=== PATIENT | female | born 1945 | race African-American/Black ===

== ENCOUNTER 2017-12-27 13:03 | Emergency (ER) | payer MEDICARE ==
--- NOTE | 2017-12-27 13:15 | ED ---
General Adult HPI - General Chief complaint: Shortness of Breath Stated complaint: CHAPIN Time Seen by Provider: 12/27/17 13:13 Source: patient, EMS, RN notes reviewed, old records reviewed Mode of arrival: EMS Limitations: no limitations - History of Present Illness Initial comments: This is a 72-year-old female the ER for evaluation. Positive cough or congestion. Patient states that she's had persistent cough and congestion since having an ALLERGIC reaction earlier in the week. She is having mild shortness of breath or no significant distress. She was placed on antibiotic by family doctor both patient states is wrong antibiotic that she does not have success with. She denies any chest pain no fevers no other complaints - Related Data Home Medications Medication Instructions Recorded Confirmed Triamterene-Hctz 37.5-25Mg 1 tab PO DAILY 06/02/15 06/08/15 [Maxzide 37.5-25] [place](Unknown Dose) 1 tab PO DIRECTED PRN 06/07/15 06/08/15 Loratadine [Claritin] 10 mg PO DAILY PRN 06/08/15 06/08/15 Previous Rx's Medication Instructions Recorded Acetaminophen-Codeine 300-30mg 1 each PO Q6H PRN #20 tablet 06/02/15 [Tylenol #3] Aspirin 325 mg PO DAILY #30 tab 06/09/15 Hydrocodone/Acetaminophen [[place] 1 each PO Q6HR PRN #60 tab 06/09/15 5-325] Albuterol Sulfate [Proair Hfa] 1 - 2 puff INHALATION Q4H PRN #1 12/27/17 inhaler Amoxicillin 500 mg PO Q8H #30 capsule 12/27/17 Allergies Allergy/AdvReac Type Severity Reaction Status Date / Time azithromycin [From Zithromax] Allergy BLOOD IN Verified 12/27/17 13:10 STOOL/URINE ciprofloxacin [From Cipro] Allergy BLOOD Verified 12/27/17 13:10 URINE/STOOL ciprofloxacin HCl Allergy BLOOD Verified 12/27/17 13:10 [From Cipro] URINE/STOOL CHLORINE Allergy Wheezing Uncoded 12/27/17 13:10 Review of Systems ROS Statement: Those systems with pertinent positive or pertinent negative responses have been documented in the HPI. ROS Other: All systems not noted in ROS Statement are negative. Past Medical History Past Medical History: Hypertension, Osteoarthritis (OA) Additional Past Medical History / Comment(s): CURRENT FX OF LEFT HUMERUS D/T FALL, SHOULDER IMMOBILIZED CURRENTLY History of Any Multi-Drug Resistant Organisms: None Reported Past Surgical History: Orthopedic Surgery Additional Past Surgical History / Comment(s): SX FX RT WRIST, LT IM HUMURUS NAILING Past Anesthesia/Blood Transfusion Reactions: No Reported Reaction Past Psychological History: No Psychological Hx Reported Smoking Status: Former smoker Past Alcohol Use History: None Reported Past Drug Use History: None Reported - Past Family History Father Family Medical History: Cancer, Dementia Additional Family Medical History / Comment(s): COLON Cncer, mrsa Mother Family Medical History: Asthma, Myocardial Infarction ([place]) Additional Family Medical History / Comment(s): age 33 General Exam Limitations: no limitations General appearance: alert, in no apparent distress Head exam: Present: atraumatic, normocephalic, normal inspection Eye exam: Present: normal appearance, PERRL, EOMI. Absent: scleral icterus, conjunctival injection, periorbital swelling ENT exam: Present: normal exam, mucous membranes moist Neck exam: Present: normal inspection. Absent: tenderness, meningismus, lymphadenopathy Respiratory exam: Present: normal lung sounds bilaterally. Absent: respiratory distress, wheezes, rales, rhonchi, stridor Cardiovascular Exam: Present: regular rate, normal rhythm, normal heart sounds. Absent: systolic murmur, diastolic murmur, rubs, gallop, clicks GI/Abdominal exam: Present: soft, normal bowel sounds. Absent: distended, tenderness, guarding, rebound, rigid Extremities exam: Present: normal inspection, full ROM, normal capillary refill. Absent: tenderness, pedal edema, joint swelling, calf tenderness Back exam: Present: normal inspection Neurological exam: Present: alert, oriented X3, CN II-XII intact Psychiatric exam: Present: normal affect, normal mood Skin exam: Present: warm, dry, intact, normal color. Absent: rash Course Vital Signs 12/27/17 12/27/17 12/27/17 13:10 13:30 14:09 Temperature 97.9 F Pulse Rate 88 84 Respiratory 19 19 Rate Blood Pressure 187/87 O2 Sat by Pulse 95 Oximetry 12/27/17 14:18 Temperature Pulse Rate 86 Respiratory Rate Blood Pressure O2 Sat by Pulse Oximetry - Reevaluation(s) Reevaluation #1: 06/30/18 14:18 Patient remains without significant complaint or distress. Medical Decision Making - Medical Decision Making 72 female to ER for evaluation of cough and congestion, patient live antibiotic changed. She is without distress here in the ER and can be discharged home - Radiology Data Radiology results: report reviewed (Chest x-rays negative), image reviewed Disposition Clinical Impression: Acute bronchitis, Community acquired bacterial pneumonia Disposition: HOME SELF-CARE Condition: Good Instructions: Acute Bronchitis (ED), Bronchospasm (ED), Community Acquired Pneumonia (ED) Prescriptions: Albuterol Sulfate [Proair Hfa] 1 - 2 puff INHALATION Q4H PRN #1 inhaler PRN Reason: Shortness Of Breath Amoxicillin 500 mg PO Q8H #30 capsule Is patient prescribed a controlled substance at d/c from ED?: No Referrals: Nonstaff,Physician [Primary Care Provider] - 1-2 days
[2017-12-27] MEDS ORDERED: IPRATROPIUM-ALBUTEROL 3 ML NEB INHALATION STA (13:55)
[2017-12-27] MEDS ORDERED: SODIUM CHLORIDE 0.9% 1,000 ML IV STA (13:55)
[2017-12-27] MEDS ORDERED: AMOXICILLIN 500 MG CAP PO STA (13:59)
[2017-12-27] MEDS ORDERED: DEXAMETHASONE SOD PHOSPHATE 10 MG/ML 1 ML VIAL IM STA (13:59)
--- NOTE | 2017-12-27 14:47 | XR ---
EXAMINATION TYPE: XR chest 2V DATE OF EXAM: 12/27/2017 COMPARISON: Prior chest x-ray 06/02/2015 HISTORY: Difficulty breathing, cough TECHNIQUE: Frontal and lateral views of the chest are obtained. FINDINGS: There is increased density at the right lung base suggesting right heart border and hemidi aphragm. No evident pneumothorax. Heart is thought to be enlarged. Postop change noted to the left hu merus. Aorta is tortuous, patient is rotated. Right shoulder is high riding which may be due to chron ic rotator cuff tear. IMPRESSION: Correlate for right lower lobe pneumonia and associated effusion versus atelectasis, fol low-up to resolution to exclude an underlying mass. There may be cardiomegaly.
[2017-12-27 14:53] VITALS: BP 180/81; PULSE 89; RESP 20; TEMP 96.9
== END 2017-12-27 15:12 | disposition home or self-care (01) ==
LOC: EC 13:03
DX: J15.9 Unspecified bacterial pneumonia (principal); J20.9 Acute bronchitis, unspecified; I10 Essential (primary) hypertension; Z87.891 Personal history of nicotine dependence; Z79.899 Other long term (current) drug therapy; Z88.1 Allergy status to other antibiotic agents; Z91.048 Other nonmedicinal substance allergy status; Z82.5 Family history of asthma and other chronic lower respiratory diseases; Z53.8 Procedure and treatment not carried out for other reasons
CPT/HCPCS: 94640; 71046; 99285; 96372; J1100

== ENCOUNTER 2017-12-30 19:23 | Emergency (ER) | payer MEDICARE ==
[2017-12-30 19:34] VITALS: TEMP 98.3
[2017-12-30] MEDS ORDERED: IPRATROPIUM-ALBUTEROL 3 ML NEB INHALATION STA (19:51)
[2017-12-30] MEDS ORDERED: methylPREDNISolone SOD SUCCI 125 MG/2 ML VIAL IV STA (19:52)
[2017-12-30 20:12] LABS: Basophils # (A) 0.1 k/uL (0-0.2); Basophils % (A) 1 %; Eosinophils # (A) 0.2 k/uL (0-0.7); Eosinophils % (A) 3 %; HGB 15.3 gm/dL (11.4-16.0); Lymphocytes # (A) 2.8 k/uL (1.0-4.8); Lymphocytes % (A) 45 %; MCH 29.7 pg (25.0-35.0); MCV 87.4 fL (80.0-100.0); Mean Platelet Volume 6.8; Monocytes # (A) 0.5 k/uL (0-1.0); Monocytes % (A) 8 %; Neutrophils # (A) 2.5 k/uL (1.3-7.7); Neutrophils % (A) 40 %; Platelet Count 422 k/uL (150-450); RBC 5.15 m/uL (3.80-5.40); RDW 13.2 % (11.5-15.5); WBC 6.3 k/uL (3.8-10.6)
--- NOTE | 2017-12-30 20:13 | ED ---
SOB HPI - General Chief Complaint: Shortness of Breath Stated Complaint: SOB-revisit Time Seen by Provider: 12/30/17 19:36 Source: patient Mode of arrival: wheelchair Limitations: no limitations - History of Present Illness Initial Comments: This is a 72-year-old female who presents emergency department for shortness of breath. The patient was seen here a few days ago and diagnosed with pneumonia. She was placed on amoxicillin and given a prescription for albuterol however the she was unable to get that filled because of the cost. She states that she' s had persistent symptoms and feels that she's getting worse. She states that she has a lot of coughing. She states that she feels like her throat is swollen and that is why she is having a cough. She denies any pain associated with this. No fevers or chills. No weakness or fatigue. She denies any other acute complaints. Of note the patient believes that she has a chloride ALLERGY to the water and that this causes her to have bronchitis. - Related Data Home Medications Medication Instructions Recorded Confirmed Triamterene-Hctz 37.5-25Mg 1 tab PO DAILY 06/02/15 12/30/17 [Maxzide 37.5-25] guaiFENesin [Mucinex] 600 mg PO Q12H PRN 12/30/17 12/30/17 Previous Rx's Medication Instructions Recorded Amoxicillin 500 mg PO Q8H #30 capsule 12/27/17 predniSONE 50 mg PO DAILY #4 tab 12/30/17 Allergies Allergy/AdvReac Type Severity Reaction Status Date / Time azithromycin [From Zithromax] Allergy BLOOD IN Verified 12/30/17 20:05 STOOL/URINE ciprofloxacin [From Cipro] Allergy BLOOD Verified 12/30/17 20:05 URINE/STOOL ciprofloxacin HCl Allergy BLOOD Verified 12/30/17 20:05 [From Cipro] URINE/STOOL CHLORINE Allergy Wheezing Uncoded 12/30/17 19:35 Review of Systems ROS Statement: Those systems with pertinent positive or pertinent negative responses have been documented in the HPI. ROS Other: All systems not noted in ROS Statement are negative. Past Medical History Past Medical History: Hypertension, Osteoarthritis (OA), Pneumonia Additional Past Medical History / Comment(s): CURRENT FX OF LEFT HUMERUS D/T FALL, SHOULDER IMMOBILIZED CURRENTLY History of Any Multi-Drug Resistant Organisms: None Reported Past Surgical History: Orthopedic Surgery Additional Past Surgical History / Comment(s): SX FX RT WRIST, LT IM HUMURUS NAILING Past Anesthesia/Blood Transfusion Reactions: No Reported Reaction Past Psychological History: No Psychological Hx Reported Smoking Status: Former smoker Past Alcohol Use History: Occasional Past Drug Use History: None Reported - Past Family History Father Family Medical History: Cancer, Dementia Additional Family Medical History / Comment(s): COLON Cncer, mrsa Mother Family Medical History: Asthma, Myocardial Infarction ([place]) Additional Family Medical History / Comment(s): age 33 General Exam - General Exam Comments Initial Comments: Constitutional: Awake alert Appears comfortable Head: Normocephalic atraumatic Eyes: no conjunctival injection No scleral icterus EOMI Neck: No JVD Supple, no swelling noted, no stridor Heart: Regular rate rhythm normal S1-S2 no murmurs Lungs: Clear to auscultation bilaterally No wheezing No rales Abdomen: Soft nondistended nontender Extremities: Non edematous DP pulses intact Radial pulses intact Neuro: A&Ox3 No focal neurologic deficits Psych: Appropriate mood and affect Limitations: no limitations Course Vital Signs 12/30/17 12/30/17 12/30/17 19:29 20:02 20:12 Temperature 98.3 F Pulse Rate 94 75 73 Respiratory 18 18 16 Rate Blood Pressure 164/82 171/76 O2 Sat by Pulse 96 95 Oximetry 12/30/17 12/30/17 20:22 21:52 Temperature Pulse Rate 80 82 Respiratory 16 18 Rate Blood Pressure 157/84 O2 Sat by Pulse 95 Oximetry - Reevaluation(s) Reevaluation #1: 12/30/17 20:13 EKG showing normal sinus rhythm with a rate of 86. There is no abnormal ST segment changes. There is T-wave flattening in 3 and aVF. QTC is 456. Other intervals normal. No ectopy. Medical Decision Making - Medical Decision Making This is a 72-year-old female who presents emergency department for persistent cough and shortness of breath. Patient had much improvement after DuoNeb. She had no further coughing or shortness of breath. Oxygen saturation saturations were normal. Blood work was reviewed and unremarkable. Chest x-ray showed a persistent what appears to be pleural effusion on the right. The patient is being treated with amoxicillin 500 mg 3 times a day and has 5 days left. I told her to continue with this. I'm going to give her some steroids to help with some of the inflammation as well. Patient was given a prescription for albuterol and she was urged to please pick this up so that she could treat her symptoms. With regard to the pleural effusion I told the patient that she needs to have close follow-up with her primary doctor to have this further worked up. There is no lower extremity edema. No evidence for heart failure otherwise. Told the patient if she had worsening cough or shortness of breath she can return emergency department however the patient stated that she would prefer not to stay in the hospital now. - Lab Data Result diagrams: 12/30/17 19:58 12/30/17 19:58 Lab Results 12/30/17 12/30/17 Range/Units 19:58 19:58 WBC 6.3 (3.8-10.6) k/uL RBC 5.15 (3.80-5.40) m/uL Hgb 15.3 (11.4-16.0) gm/dL Hct 45.0 (34.0-46.0) % MCV 87.4 (80.0-100.0) fL MCH 29.7 (25.0-35.0) pg MCHC 34.0 (31.0-37.0) g/dL RDW 13.2 (11.5-15.5) % Plt Count 422 (150-450) k/uL Neutrophils % 40 % Lymphocytes % 45 % Monocytes % 8 % Eosinophils % 3 % Basophils % 1 % Neutrophils # 2.5 (1.3-7.7) k/uL Lymphocytes # 2.8 (1.0-4.8) k/uL Monocytes # 0.5 (0-1.0) k/uL Eosinophils # 0.2 (0-0.7) k/uL Basophils # 0.1 (0-0.2) k/uL Sodium 142 (137-145) mmol/L Potassium 3.7 (3.5-5.1) mmol/L Chloride 104 (98-107) mmol/L Carbon Dioxide 23 (22-30) mmol/L Anion Gap 15 mmol/L BUN 19 H (7-17) mg/dL Creatinine 0.90 (0.52-1.04) mg/dL Est GFR (CKD-EPI)AfAm 74 (>60 ml/min/1.73 sqM) Est GFR (CKD-EPI)NonAf 64 (>60 ml/min/1.73 sqM) Glucose 93 (74-99) mg/dL Calcium 10.4 H (8.4-10.2) mg/dL Total Bilirubin 0.4 (0.2-1.3) mg/dL AST 32 (14-36) U/L ALT 39 (9-52) U/L Alkaline Phosphatase 104 (38-126) U/L Total Protein 7.8 (6.3-8.2) g/dL Albumin 4.6 (3.5-5.0) g/dL Disposition Clinical Impression: Bronchopneumonia Disposition: HOME SELF-CARE Condition: Stable Instructions: Acute Bronchitis (ED) Prescriptions: predniSONE 50 mg PO DAILY #4 tab Is patient prescribed a controlled substance at d/c from ED?: No Referrals: Nonstaff,Physician [Primary Care Provider] - 1-2 days
[2017-12-30 20:21] LABS: Albumin 4.6 g/dL (3.5-5.0); Calcium 10.4 mg/dL (8.4-10.2); Potassium 3.7 mmol/L (3.5-5.1); Total Bilirubin 0.4 mg/dL (0.2-1.3); Total Protein 7.8 g/dL (6.3-8.2)
--- NOTE | 2017-12-30 21:30 | XR ---
EXAMINATION TYPE: XR chest 2V DATE OF EXAM: 12/30/2017 COMPARISON: 12/27/2017 HISTORY: Cough TECHNIQUE: Frontal and lateral views of the chest are obtained. FINDINGS: There is opacification of the right lower hemithorax.. There is no heart failure. There is probably significant atelectasis at the right lung base. There is right pleural effusion with fluid in the major fissure. The left lung is clear. There are chest leads. IMPRESSION: Chronic right pleural effusion and right lower lobe consolidation that is the same or sl ightly worse than last exam.
--- NOTE | 2017-12-30 21:30 | XR ---
EXAMINATION TYPE: XR soft tissue neck DATE OF EXAM: 12/30/2017 COMPARISON: NONE HISTORY: Cough TECHNIQUE: 3 views FINDINGS: Epiglottis is normal. Subglottic trachea appears normal. Tonsils and adenoids have normal s ize. Prevertebral soft tissues appear normal. IMPRESSION: Negative cervical soft tissue exam.
[2017-12-30 21:55] VITALS: BP 157/84; PULSE 82; RESP 18
== END 2017-12-30 21:58 | disposition home or self-care (01) ==
LOC: EC 19:23
DX: J18.0 Bronchopneumonia, unspecified organism (principal); J90 Pleural effusion, not elsewhere classified; I10 Essential (primary) hypertension; Z87.891 Personal history of nicotine dependence; Z79.899 Other long term (current) drug therapy; Z88.1 Allergy status to other antibiotic agents; Z88.8 Allergy status to other drugs, medicaments and biological substances
CPT/HCPCS: 36415; 94640; 93005; 80053; 85025; 70360; 71046; 99285; 96374; J2930

== ENCOUNTER 2018-01-23 15:59 | Emergency (ER) | payer MEDICARE ==
[2018-01-23] MEDS ORDERED: IPRATROPIUM-ALBUTEROL 3 ML NEB INHALATION STA (17:05)
[2018-01-23 17:26] LABS: Basophils % (A) 1 %; Eosinophils # (A) 0.1 k/uL (0-0.7); Eosinophils % (A) 2 %; HCT 46.1 % (34.0-46.0); HGB 14.9 gm/dL (11.4-16.0); Lymphocytes # (A) 2.9 k/uL (1.0-4.8); Lymphocytes % (A) 45 %; MCH 28.4 pg (25.0-35.0); MCHC 32.4 g/dL (31.0-37.0); MCV 87.5 fL (80.0-100.0); Mean Platelet Volume 6.9; Monocytes # (A) 0.5 k/uL (0-1.0); Monocytes % (A) 8 %; Neutrophils # (A) 2.6 k/uL (1.3-7.7); Neutrophils % (A) 42 %; Platelet Count 453 k/uL (150-450); RBC 5.27 m/uL (3.80-5.40); RDW 12.6 % (11.5-15.5); WBC 6.4 k/uL (3.8-10.6)
[2018-01-23 17:31] LABS: ALT 33 U/L (9-52); AST 32 U/L (14-36); Albumin 4.6 g/dL (3.5-5.0); Alkaline Phosphatase 92 U/L (38-126); Anion Gap 10 mmol/L; Blood Urea Nitrogen 19 mg/dL (7-17); Calcium 10.7 mg/dL (8.4-10.2); Carbon Dioxide 26 mmol/L (22-30); Chloride 103 mmol/L (98-107); Glucose 84 mg/dL (74-99); Magnesium 2.2 mg/dL (1.6-2.3); Potassium 4.1 mmol/L (3.5-5.1); Prothrombin Time 10.2 sec (9.0-12.0); Sodium 139 mmol/L (137-145); Total Bilirubin 0.4 mg/dL (0.2-1.3)
[2018-01-23 17:44] LABS: Creatine Kinase 57 U/L (30-135)
[2018-01-23 17:57] LABS: Creatine Kinase MB 0.6 ng/mL (0.0-2.4); Troponin I <0.012 ng/mL (0.000-0.034)
[2018-01-23 18:02] LABS: Partial Thromboplastin Time 21.1 sec (22.0-30.0)
--- NOTE | 2018-01-23 18:03 | ED ---
General Adult HPI - General Chief complaint: Shortness of Breath Stated complaint: Diff Breathing Time Seen by Provider: 01/23/18 16:30 Source: patient, RN notes reviewed, old records reviewed Mode of arrival: wheelchair Limitations: no limitations - History of Present Illness Initial comments: This is a 73-year-old female the ER for evaluation. Patient well-known to this ER for evaluation regarding difficulty breathing. Multiple similar visits. He denies any pain or difficulty breathing currently. She states she's had a chronic cough for about a month and is something that she's had multiple times in her life. Patient denies a chest pain, no recent fevers. No travel history or known sick contacts - Related Data Home Medications Medication Instructions Recorded Confirmed Triamterene-Hctz 37.5-25Mg 1 tab PO DAILY 06/02/15 01/23/18 [Maxzide 37.5-25] guaiFENesin [Mucinex] 600 mg PO Q12H PRN 12/30/17 01/23/18 Biotin 5 mg PO DAILY 01/23/18 01/23/18 Cyanocobalamin (Vitamin B-12) 1,000 mcg PO DAILY 01/23/18 01/23/18 [Vitamin B-12] Methylsulfonylmethane [MSM] 1,000 mg PO DAILY 01/23/18 01/23/18 Multivitamins, Thera [Multivitamin 1 tab PO DAILY 01/23/18 01/23/18 (formulary)] Vitamin B Complex 1 cap PO DAILY 01/23/18 01/23/18 Vitamin E (Dl,Tocopheryl Acet) 400 unit PO DAILY 01/23/18 01/23/18 [Vitamin E] Previous Rx's Medication Instructions Recorded predniSONE 50 mg PO DAILY #5 tab 01/23/18 Allergies Allergy/AdvReac Type Severity Reaction Status Date / Time azithromycin [From Zithromax] Allergy BLOOD IN Verified 01/23/18 16:50 STOOL/URINE ciprofloxacin [From Cipro] Allergy BLOOD Verified 01/23/18 16:50 URINE/STOOL ciprofloxacin HCl Allergy BLOOD Verified 01/23/18 16:50 [From Cipro] URINE/STOOL CHLORINE Allergy Wheezing Uncoded 01/23/18 16:33 Review of Systems ROS Statement: Those systems with pertinent positive or pertinent negative responses have been documented in the HPI. ROS Other: All systems not noted in ROS Statement are negative. Past Medical History Past Medical History: Hypertension, Osteoarthritis (OA), Pneumonia Additional Past Medical History / Comment(s): CURRENT FX OF LEFT HUMERUS D/T FALL, SHOULDER IMMOBILIZED CURRENTLY History of Any Multi-Drug Resistant Organisms: None Reported Past Surgical History: Orthopedic Surgery Additional Past Surgical History / Comment(s): SX FX RT WRIST, LT IM HUMURUS NAILING Past Anesthesia/Blood Transfusion Reactions: No Reported Reaction Past Psychological History: No Psychological Hx Reported Smoking Status: Former smoker Past Alcohol Use History: Occasional Past Drug Use History: None Reported - Past Family History Father Family Medical History: Cancer, Dementia Additional Family Medical History / Comment(s): COLON Cncer, mrsa Mother Family Medical History: Asthma, Myocardial Infarction ([place]) Additional Family Medical History / Comment(s): age 33 General Exam Limitations: no limitations General appearance: alert, in no apparent distress Head exam: Present: atraumatic, normocephalic, normal inspection Eye exam: Present: normal appearance, PERRL, EOMI. Absent: scleral icterus, conjunctival injection, periorbital swelling ENT exam: Present: normal exam, mucous membranes moist Neck exam: Present: normal inspection. Absent: tenderness, meningismus, lymphadenopathy Respiratory exam: Present: normal lung sounds bilaterally. Absent: respiratory distress, wheezes, rales, rhonchi, stridor Cardiovascular Exam: Present: regular rate, normal rhythm, normal heart sounds. Absent: systolic murmur, diastolic murmur, rubs, gallop, clicks GI/Abdominal exam: Present: soft, normal bowel sounds. Absent: distended, tenderness, guarding, rebound, rigid Extremities exam: Present: normal inspection, full ROM, normal capillary refill. Absent: tenderness, pedal edema, joint swelling, calf tenderness Back exam: Present: normal inspection Neurological exam: Present: alert, oriented X3, CN II-XII intact Psychiatric exam: Present: normal affect, normal mood Skin exam: Present: warm, dry, intact, normal color. Absent: rash Course Vital Signs 01/23/18 01/23/18 01/23/18 16:30 17:10 17:24 Temperature 98.3 F Pulse Rate 83 92 69 Respiratory 20 Rate Blood Pressure 141/80 O2 Sat by Pulse 98 Oximetry 01/23/18 19:21 Temperature 97.8 F Pulse Rate 70 Respiratory 18 Rate Blood Pressure 156/73 O2 Sat by Pulse 98 Oximetry - Reevaluation(s) Reevaluation #1: Corrected is reviewed including prior ER visits twice for similar complaint EKG Findings - EKG Comments: EKG Findings:: EKG shows normal sinus rhythm rate of 70, [place] 136, QRS 76, QTc 423 Medical Decision Making - Medical Decision Making 73 female coming in with chronic cough. Patient will be treated appropriately and discharged home - Lab Data Result diagrams: 01/23/18 16:52 01/23/18 16:52 Lab Results 01/23/18 01/23/18 01/23/18 Range/Units 16:52 16:52 16:52 WBC 6.4 (3.8-10.6) k/uL RBC 5.27 (3.80-5.40) m/uL Hgb 14.9 (11.4-16.0) gm/dL Hct 46.1 H (34.0-46.0) % MCV 87.5 (80.0-100.0) fL MCH 28.4 (25.0-35.0) pg MCHC 32.4 (31.0-37.0) g/dL RDW 12.6 (11.5-15.5) % Plt Count 453 H (150-450) k/uL Neutrophils % 42 % Lymphocytes % 45 % Monocytes % 8 % Eosinophils % 2 % Basophils % 1 % Neutrophils # 2.6 (1.3-7.7) k/uL Lymphocytes # 2.9 (1.0-4.8) k/uL Monocytes # 0.5 (0-1.0) k/uL Eosinophils # 0.1 (0-0.7) k/uL Basophils # 0.0 (0-0.2) k/uL PT (9.0-12.0) sec INR (<1.2) APTT (22.0-30.0) sec Sodium 139 (137-145) mmol/L Potassium 4.1 (3.5-5.1) mmol/L Chloride 103 (98-107) mmol/L Carbon Dioxide 26 (22-30) mmol/L Anion Gap 10 mmol/L BUN 19 H (7-17) mg/dL Creatinine 0.70 (0.52-1.04) mg/dL Est GFR (CKD-EPI)AfAm >90 (>60 ml/min/1.73 sqM) Est GFR (CKD-EPI)NonAf 86 (>60 ml/min/1.73 sqM) Glucose 84 (74-99) mg/dL Calcium 10.7 H (8.4-10.2) mg/dL Magnesium 2.2 (1.6-2.3) mg/dL Total Bilirubin 0.4 (0.2-1.3) mg/dL AST 32 (14-36) U/L ALT 33 (9-52) U/L Alkaline Phosphatase 92 (38-126) U/L Total Creatine Kinase 57 (30-135) U/L CK-MB (CK-2) 0.6 (0.0-2.4) ng/mL CK-MB (CK-2) Rel Index 1.1 Troponin I <0.012 (0.000-0.034) ng/mL NT-Pro-B Natriuret Pep pg/mL Total Protein 8.0 (6.3-8.2) g/dL Albumin 4.6 (3.5-5.0) g/dL 01/23/18 01/23/18 Range/Units 16:52 16:52 WBC (3.8-10.6) k/uL RBC (3.80-5.40) m/uL Hgb (11.4-16.0) gm/dL Hct (34.0-46.0) % MCV (80.0-100.0) fL MCH (25.0-35.0) pg MCHC (31.0-37.0) g/dL RDW (11.5-15.5) % Plt Count (150-450) k/uL Neutrophils % % Lymphocytes % % Monocytes % % Eosinophils % % Basophils % % Neutrophils # (1.3-7.7) k/uL Lymphocytes # (1.0-4.8) k/uL Monocytes # (0-1.0) k/uL Eosinophils # (0-0.7) k/uL Basophils # (0-0.2) k/uL PT 10.2 (9.0-12.0) sec INR 1.0 (<1.2) APTT 21.1 L (22.0-30.0) sec Sodium (137-145) mmol/L Potassium (3.5-5.1) mmol/L Chloride (98-107) mmol/L Carbon Dioxide (22-30) mmol/L Anion Gap mmol/L BUN (7-17) mg/dL Creatinine (0.52-1.04) mg/dL Est GFR (CKD-EPI)AfAm (>60 ml/min/1.73 sqM) Est GFR (CKD-EPI)NonAf (>60 ml/min/1.73 sqM) Glucose (74-99) mg/dL Calcium (8.4-10.2) mg/dL Magnesium (1.6-2.3) mg/dL Total Bilirubin (0.2-1.3) mg/dL AST (14-36) U/L ALT (9-52) U/L Alkaline Phosphatase (38-126) U/L Total Creatine Kinase (30-135) U/L CK-MB (CK-2) (0.0-2.4) ng/mL CK-MB (CK-2) Rel Index Troponin I (0.000-0.034) ng/mL NT-Pro-B Natriuret Pep 37 pg/mL Total Protein (6.3-8.2) g/dL Albumin (3.5-5.0) g/dL - Radiology Data Radiology results: report reviewed (Chest x-rays negative for acute disease), image reviewed Disposition Clinical Impression: Bronchopneumonia, URI (upper respiratory infection) Disposition: HOME SELF-CARE Condition: Good Instructions: Upper Respiratory Infection (ED) Prescriptions: predniSONE 50 mg PO DAILY #5 tab Is patient prescribed a controlled substance at d/c from ED?: No Referrals: Nahed Ledezma MD [Primary Care Provider] - 1-2 days
--- NOTE | 2018-01-23 18:44 | XR ---
EXAMINATION TYPE: XR chest 2V DATE OF EXAM: 01/23/2018 COMPARISON: 12/30/2017 HISTORY: Short of breath TECHNIQUE: Frontal and lateral views of the chest are obtained. FINDINGS: There is opacification of the right lower hemithorax consistent with large pleural effusio n. There is no gross heart failure. Thoracic aorta is atheromatous. There are chest leads. IMPRESSION: Pleural fluid and consolidation in the right lower lobe. No gross heart failure. This ap pears the same or slightly worse than last exam.
[2018-01-23] MEDS ORDERED: DEXAMETHASONE SOD PHOSPHATE 10 MG/ML 1 ML VIAL IV STA (18:48)
[2018-01-23 19:25] VITALS: BP 156/73; RESP 18; TEMP 97.8
[2018-01-23 19:30] VITALS: PULSE 70
== END 2018-01-23 19:30 | disposition home or self-care (01) ==
LOC: EC 15:59
DX: J18.0 Bronchopneumonia, unspecified organism (principal); J06.9 Acute upper respiratory infection, unspecified; I10 Essential (primary) hypertension; Z87.891 Personal history of nicotine dependence; Z79.899 Other long term (current) drug therapy; Z88.1 Allergy status to other antibiotic agents; Z91.048 Other nonmedicinal substance allergy status
CPT/HCPCS: 36415; 94640; 83880; 80053; 82550; 82553; 83735; 84484; 85025; 85610; 85730; 71046; 99285; 96374; J1100

== ENCOUNTER 2018-02-03 11:44 | Emergency (ER) | payer MEDICARE ==
[2018-02-03] MEDS ORDERED: IPRATROPIUM-ALBUTEROL 3 ML NEB INHALATION STA (12:18)
--- NOTE | 2018-02-03 12:21 | ED ---
SOB HPI - General Chief Complaint: Shortness of Breath Stated Complaint: Sob Time Seen by Provider: 02/03/18 12:00 Source: patient, RN notes reviewed Mode of arrival: ambulatory Limitations: no limitations - History of Present Illness Initial Comments: This is a 73-year-old female history of hypertension states she has had progressively worsening shortness of breath for week. She states that she was in [facility] over week ago and is sure that she would have normal breathing after several days of vaccination. She did not get better in fact got worse she was seen at a hospital there and found have a right pleural effusion. He stated she wanted him also she came home last night by airplane is here today with complaints of shortness of breath and the pleural effusion history she has no prior history of effusion no known lung disease she states she did smoke when she was in college many years ago but nothing since. No trauma is reported no fevers chills sweats over chest pain or other symptoms. MD Complaint: shortness of breath - Related Data Home Medications Medication Instructions Recorded Confirmed Triamterene-Hctz 37.5-25Mg 1 tab PO DAILY 06/02/15 02/03/18 [Maxzide 37.5-25] guaiFENesin [Mucinex] 600 mg PO Q12H PRN 12/30/17 02/03/18 Biotin 5 mg PO DAILY 01/23/18 02/03/18 Cyanocobalamin (Vitamin B-12) 1,000 mcg PO DAILY 01/23/18 02/03/18 [Vitamin B-12] Methylsulfonylmethane [MSM] 1,000 mg PO DAILY 01/23/18 02/03/18 Multivitamins, Thera [Multivitamin 1 tab PO DAILY 01/23/18 02/03/18 (formulary)] Vitamin B Complex 1 cap PO DAILY 01/23/18 02/03/18 Vitamin E (Dl,Tocopheryl Acet) 400 unit PO DAILY 01/23/18 02/03/18 [Vitamin E] Acetaminophen Tab [Tylenol Tab] 325 mg PO Q4H PRN 02/03/18 02/03/18 Cholecalciferol [Vitamin D3] 1,000 unit PO DAILY 02/03/18 02/03/18 Allergies Allergy/AdvReac Type Severity Reaction Status Date / Time azithromycin [From Zithromax] Allergy BLOOD IN Verified 02/03/18 12:31 STOOL/URINE ciprofloxacin [From Cipro] Allergy BLOOD Verified 02/03/18 12:31 URINE/STOOL ciprofloxacin HCl Allergy BLOOD Verified 02/03/18 12:31 [From Cipro] URINE/STOOL CHLORINE Allergy Wheezing Uncoded 02/03/18 11:59 Review of Systems ROS Statement: Those systems with pertinent positive or pertinent negative responses have been documented in the HPI. ROS Other: All systems not noted in ROS Statement are negative. Past Medical History Past Medical History: Hypertension, Osteoarthritis (OA), Pneumonia Additional Past Medical History / Comment(s): CURRENT FX OF LEFT HUMERUS D/T FALL, SHOULDER IMMOBILIZED CURRENTLY History of Any Multi-Drug Resistant Organisms: None Reported Past Surgical History: Orthopedic Surgery Additional Past Surgical History / Comment(s): SX FX RT WRIST, LT IM HUMURUS NAILING Past Anesthesia/Blood Transfusion Reactions: No Reported Reaction Past Psychological History: No Psychological Hx Reported Smoking Status: Former smoker Past Alcohol Use History: Occasional Past Drug Use History: None Reported - Past Family History Father Family Medical History: Cancer, Dementia Additional Family Medical History / Comment(s): COLON Cncer, mrsa Mother Family Medical History: Asthma, Myocardial Infarction ([place]) Additional Family Medical History / Comment(s): age 33 General Exam - General Exam Comments Initial Comments: This is a well-developed well-nourished awake alert oriented 3 female Limitations: no limitations General appearance: alert, in no apparent distress Head exam: Present: atraumatic, normocephalic, normal inspection Eye exam: Present: normal appearance, PERRL, EOMI. Absent: scleral icterus, conjunctival injection, periorbital swelling ENT exam: Present: normal exam, mucous membranes moist Neck exam: Present: normal inspection. Absent: tenderness, meningismus, lymphadenopathy Respiratory exam: Present: decreased breath sounds, other (Decreased breath sounds on the right with dullness compared to the left side.). Absent: respiratory distress, wheezes, rales, rhonchi, stridor Cardiovascular Exam: Present: regular rate, normal rhythm, normal heart sounds. Absent: systolic murmur, diastolic murmur, rubs, gallop, clicks GI/Abdominal exam: Present: soft, normal bowel sounds. Absent: distended, tenderness, guarding, rebound, rigid Extremities exam: Present: normal inspection, full ROM, normal capillary refill. Absent: tenderness, pedal edema, joint swelling, calf tenderness Back exam: Present: normal inspection Neurological exam: Present: alert, oriented X3, CN II-XII intact Psychiatric exam: Present: normal affect, normal mood Skin exam: Present: warm, dry, intact, normal color. Absent: rash Course Vital Signs 02/03/18 02/03/18 02/03/18 11:59 12:48 12:50 Temperature 98.1 F Pulse Rate 90 83 Respiratory 18 18 18 Rate Blood Pressure 166/95 169/96 O2 Sat by Pulse 97 96 Oximetry 02/03/18 02/03/18 02/03/18 13:00 13:12 13:51 Temperature Pulse Rate 82 80 87 Respiratory 18 Rate Blood Pressure 169/84 O2 Sat by Pulse 97 Oximetry 02/03/18 02/03/18 14:30 15:44 Temperature 97.4 F L Pulse Rate 96 95 Respiratory 19 18 Rate Blood Pressure 168/82 173/84 O2 Sat by Pulse 95 95 Oximetry - Reevaluation(s) Reevaluation #1: 02/03/18 15:55 Patient does demonstrate evidence of a pleural effusion on the right. Dr. Liang was originally consulted and did perform a ultrasound guided thoracentesis in the emergency department and did obtain over 700 mL of fluid. After reevaluation it was determined that she could be discharged he will follow -up with Dr. Liang outpatient. She is to call tomorrow for an appointment Medical Decision Making - Medical Decision Making I did discuss the findings with Dr. Liang patient will be discharged with outpatient follow-up I did discuss the findings with the patient she'll be discharged pain medication will be [id number] Tylenol and/or Motrin she has had trouble with Aleve in the past but not ibuprofen. The current findings are consistent with a parapneumonic effusion - Lab Data Result diagrams: 02/03/18 12:33 02/03/18 12:33 Lab Results 02/03/18 02/03/18 02/03/18 Range/Units 12:33 12:33 12:33 WBC 6.6 (3.8-10.6) k/uL RBC 5.18 (3.80-5.40) m/uL Hgb 15.1 (11.4-16.0) gm/dL Hct 45.1 (34.0-46.0) % MCV 87.1 (80.0-100.0) fL MCH 29.1 (25.0-35.0) pg MCHC 33.4 (31.0-37.0) g/dL RDW 13.0 (11.5-15.5) % Plt Count 313 (150-450) k/uL Neutrophils % 58 % Lymphocytes % 30 % Monocytes % 8 % Eosinophils % 2 % Basophils % 0 % Neutrophils # 3.8 (1.3-7.7) k/uL Lymphocytes # 1.9 (1.0-4.8) k/uL Monocytes # 0.5 (0-1.0) k/uL Eosinophils # 0.1 (0-0.7) k/uL Basophils # 0.0 (0-0.2) k/uL PT (9.0-12.0) sec INR (<1.2) APTT (22.0-30.0) sec Sodium 140 (137-145) mmol/L Potassium 3.7 (3.5-5.1) mmol/L Chloride 105 (98-107) mmol/L Carbon Dioxide 25 (22-30) mmol/L Anion Gap 10 mmol/L BUN 12 (7-17) mg/dL Creatinine 0.70 (0.52-1.04) mg/dL Est GFR (CKD-EPI)AfAm >90 (>60 ml/min/1.73 sqM) Est GFR (CKD-EPI)NonAf 86 (>60 ml/min/1.73 sqM) Glucose 103 H (74-99) mg/dL Plasma Lactic Acid Gonzales (0.7-2.0) mmol/L Calcium 10.0 (8.4-10.2) mg/dL Magnesium 2.2 (1.6-2.3) mg/dL Total Bilirubin 1.0 (0.2-1.3) mg/dL AST 38 H (14-36) U/L ALT 46 (9-52) U/L Alkaline Phosphatase 97 (38-126) U/L Total Creatine Kinase 75 (30-135) U/L CK-MB (CK-2) 1.2 (0.0-2.4) ng/mL CK-MB (CK-2) Rel Index 1.6 Troponin I <0.012 (0.000-0.034) ng/mL NT-Pro-B Natriuret Pep pg/mL Total Protein 7.5 (6.3-8.2) g/dL Albumin 4.3 (3.5-5.0) g/dL 02/03/18 02/03/18 02/03/18 Range/Units 12:33 12:33 12:33 WBC (3.8-10.6) k/uL RBC (3.80-5.40) m/uL Hgb (11.4-16.0) gm/dL Hct (34.0-46.0) % MCV (80.0-100.0) fL MCH (25.0-35.0) pg MCHC (31.0-37.0) g/dL RDW (11.5-15.5) % Plt Count (150-450) k/uL Neutrophils % % Lymphocytes % % Monocytes % % Eosinophils % % Basophils % % Neutrophils # (1.3-7.7) k/uL Lymphocytes # (1.0-4.8) k/uL Monocytes # (0-1.0) k/uL Eosinophils # (0-0.7) k/uL Basophils # (0-0.2) k/uL PT 10.2 (9.0-12.0) sec INR 1.0 (<1.2) APTT 20.9 L (22.0-30.0) sec Sodium (137-145) mmol/L Potassium (3.5-5.1) mmol/L Chloride (98-107) mmol/L Carbon Dioxide (22-30) mmol/L Anion Gap mmol/L BUN (7-17) mg/dL Creatinine (0.52-1.04) mg/dL Est GFR (CKD-EPI)AfAm (>60 ml/min/1.73 sqM) Est GFR (CKD-EPI)NonAf (>60 ml/min/1.73 sqM) Glucose (74-99) mg/dL Plasma Lactic Acid Gonzales 1.2 (0.7-2.0) mmol/L Calcium (8.4-10.2) mg/dL Magnesium (1.6-2.3) mg/dL Total Bilirubin (0.2-1.3) mg/dL AST (14-36) U/L ALT (9-52) U/L Alkaline Phosphatase (38-126) U/L Total Creatine Kinase (30-135) U/L CK-MB (CK-2) (0.0-2.4) ng/mL CK-MB (CK-2) Rel Index Troponin I (0.000-0.034) ng/mL NT-Pro-B Natriuret Pep 79 pg/mL Total Protein (6.3-8.2) g/dL Albumin (3.5-5.0) g/dL - EKG Data -: EKG Interpreted by Me EKG shows normal: sinus rhythm (Sinus rhythm rate 82. Interval 168 QRS duration 86 QT since QTC 380/453 old septal changes no acute ST-T wave changes) - Radiology Data Radiology results: report reviewed (I did review the imaging including outside images as well as the post thoracentesis x-ray.), image reviewed Disposition Clinical Impression: Parapneumonic effusion, S/P thoracentesis, Dyspnea Disposition: HOME SELF-CARE Condition: Good Additional Instructions: Wulv-[id number]-[id number] Motrin and Tylenol for pain, follow-up with Dr. Liang as discussed Motrin can be used [id number] 600 mg or 3 tablets every 6 hours when necessary pain Is patient prescribed a controlled substance at d/c from ED?: No Referrals: Nahed Ledezma MD [Primary Care Provider] - 1-2 days Magdaleno Liang MD [STAFF PHYSICIAN] - 1-2 days
[2018-02-03 12:58] LABS: Basophils % (A) 0 %; Eosinophils # (A) 0.1 k/uL (0-0.7); Eosinophils % (A) 2 %; HCT 45.1 % (34.0-46.0); HGB 15.1 gm/dL (11.4-16.0); Lymphocytes # (A) 1.9 k/uL (1.0-4.8); Lymphocytes % (A) 30 %; MCH 29.1 pg (25.0-35.0); MCHC 33.4 g/dL (31.0-37.0); MCV 87.1 fL (80.0-100.0); Mean Platelet Volume 6.7; Monocytes # (A) 0.5 k/uL (0-1.0); Monocytes % (A) 8 %; Neutrophils # (A) 3.8 k/uL (1.3-7.7); Neutrophils % (A) 58 %; Platelet Count 313 k/uL (150-450); RBC 5.18 m/uL (3.80-5.40); WBC 6.6 k/uL (3.8-10.6)
[2018-02-03 13:02] LABS: ALT 46 U/L (9-52); AST 38 U/L (14-36); Albumin 4.3 g/dL (3.5-5.0); Alkaline Phosphatase 97 U/L (38-126); Anion Gap 10 mmol/L; Blood Urea Nitrogen 12 mg/dL (7-17); Carbon Dioxide 25 mmol/L (22-30); Chloride 105 mmol/L (98-107); Glucose 103 mg/dL (74-99); Magnesium 2.2 mg/dL (1.6-2.3); Potassium 3.7 mmol/L (3.5-5.1); Sodium 140 mmol/L (137-145); Total Protein 7.5 g/dL (6.3-8.2)
[2018-02-03 13:14] LABS: Creatine Kinase 75 U/L (30-135)
[2018-02-03 13:21] LABS: Prothrombin Time 10.2 sec (9.0-12.0)
[2018-02-03 13:26] LABS: Creatine Kinase MB 1.2 ng/mL (0.0-2.4); Troponin I <0.012 ng/mL (0.000-0.034)
[2018-02-03 13:40] LABS: Partial Thromboplastin Time 20.9 sec (22.0-30.0)
--- NOTE | 2018-02-03 15:22 | US ---
EXAMINATION TYPE: US chest DATE OF EXAM: 02/03/2018 COMPARISON: None CLINICAL HISTORY: Pain. Right chest pleural effusion EXAM MEASUREMENTS: Right Pleural Effusion fluid pocket: 3.9 cm Right skin to fluid thickness: 3.6 cm Right side marked for possible thoracentesis outside the dept. Pulmonologists are able to review the images in the patient?s EMR. IMPRESSIONS: 1. Right pleural effusion
--- NOTE | 2018-02-03 15:45 | XR ---
EXAMINATION TYPE: XR chest 1V portable DATE OF EXAM: 02/03/2018 COMPARISON: 01/23/2018 INDICATION: Pain, post thoracentesis TECHNIQUE: Single frontal view of the chest is obtained. FINDINGS: The heart size is normal. The pulmonary vasculature is normal. There is a small right pleural effusion. This is diminished from comparison. No pneumothorax is evide nt. Right lower lobe infiltrate is present. IMPRESSION: 1. Diminished pleural effusion postthoracentesis. No pneumothorax is evident. 2. Right lower lobe mild pleural effusion and atelectasis
[2018-02-03 15:47] VITALS: RESP 18
--- NOTE | 2018-02-03 16:01 | P.CNPUL ---
History of Present Illness Consult date: 02/03/18 Reason for consult: pleural effusion Chief complaint: Shortness of breath History of present illness: This is a 73-year-old female with history of hypertension, seen in our ER for the first time on 12/27/2017, and at that time she was complaining of cough and congestion. Patient was evaluated in the ER and she had a chest x-ray showing right lower lobe pneumonia and possible good sized right-sided parapneumonic pleural effusion. She was earlier seen by family doctor and given antibiotics, and did not seem to help her symptoms. Patient was diagnosed by the ER physician as having community-acquired bacterial pneumonia, and there was no mention in his note of the issue of the pleural effusion although it was clearly seen and documented by the radiologist. Patient was discharged home on albuterol and amoxicillin. Was not advised to see a accounting specialist regarding her pleural effusion. Reevaluated again in the ER on 01/26/2018, she was complaining of shortness of breath, and she was not feeling much better. Follow-up chest x-ray continued to show good sized right-sided pleural effusion. Patient was placed on steroids and she was told that she needs to follow-up with her primary care doctor regarding the pleural effusion. She was also advised to come back if she did not feel any better. Patient came back to the ER on 01/23 with similar complaints, and this time the pleural effusion was noted to be a bit larger, she was complaining of chronic cough for about a month now in duration. This time she was given only prednisone 50 mg daily for 5 days, and again there was no recommendation to see a accounting specialist regarding her pneumonia and pleural effusion. Since her last visit, patient went to [place] and she was complaining of increased shortness of breath. Seen in one of the hospitals and she was advised to be admitted to have thoracentesis. However patient declined and she felt that she will come back to [place] and have someone look at her pleural effusion. She brought in with her x-rays and CT of the chest, and there is clearly evidence of good sized right-sided pleural effusion and right lower lobe atelectasis. I happened to be in the ER seeing another patient, and Dr. Darren Gupta asked to see the patient on consultation. I reviewed the x-rays, reviewed the CT of the chest, recommended a stat ultrasound of the chest, and proceeded to right sided thoracentesis were and 750 mL of serosanguineous fluid was removed from the right pleural space. Patient felt better, follow-up chest x-ray showed almost near complete resolution of the right pleural effusion, patient was advised to go home and see me in the office in few days. She will call my office and make an appointment. In the meantime the fluid was sent for different diagnostic studies and the differential diagnoses includes pleural effusion secondary to pneumonia/parapneumonic pleural effusion or pleural effusion secondary to underlying malignancy. Patient has already been on different courses of antibiotics, hence I felt no need to give any more antibiotics at this point and felt no need to give the patient any courses of prednisone. On physical examination she had no evidence of wheezing but she did have diminished breath sounds and dullness at the right base. Patient denies any fever, no chills, no hemoptysis, she has cough, and mostly shortness of breath. Cough is dry hacking cough, nonproductive. No chest pain, no nausea no vomiting no abdominal pain no melena no hematemesis. Patient denies any history of underlying malignancy. Review of Systems 14 point review of systems were obtained, please refer to pertinent positives and negatives in HPI. Past Medical History Past Medical History: Hypertension, Osteoarthritis (OA), Pneumonia Additional Past Medical History / Comment(s): CURRENT FX OF LEFT HUMERUS D/T FALL, SHOULDER IMMOBILIZED CURRENTLY History of Any Multi-Drug Resistant Organisms: None Reported Past Surgical History: Orthopedic Surgery Additional Past Surgical History / Comment(s): SX FX RT WRIST, LT IM HUMURUS NAILING Past Anesthesia/Blood Transfusion Reactions: No Reported Reaction Past Psychological History: No Psychological Hx Reported Smoking Status: Former smoker Past Alcohol Use History: Occasional Past Drug Use History: None Reported - Past Family History Father Family Medical History: Cancer, Dementia Additional Family Medical History / Comment(s): COLON Cncer, mrsa Mother Family Medical History: Asthma, Myocardial Infarction ([place]) Additional Family Medical History / Comment(s): age 33 Medications and Allergies Home Medications Medication Instructions Recorded Confirmed Type Triamterene-Hctz 37.5-25Mg 1 tab PO DAILY 06/02/15 02/03/18 History [Maxzide 37.5-25] guaiFENesin [Mucinex] 600 mg PO Q12H PRN 12/30/17 02/03/18 History Biotin 5 mg PO DAILY 01/23/18 02/03/18 History Cyanocobalamin (Vitamin B-12) 1,000 mcg PO DAILY 01/23/18 02/03/18 History [Vitamin B-12] Methylsulfonylmethane [MSM] 1,000 mg PO DAILY 01/23/18 02/03/18 History Multivitamins, Thera [Multivitamin 1 tab PO DAILY 01/23/18 02/03/18 History (formulary)] Vitamin B Complex 1 cap PO DAILY 01/23/18 02/03/18 History Vitamin E (Dl,Tocopheryl Acet) 400 unit PO DAILY 01/23/18 02/03/18 History [Vitamin E] Acetaminophen Tab [Tylenol Tab] 325 mg PO Q4H PRN 02/03/18 02/03/18 History Cholecalciferol [Vitamin D3] 1,000 unit PO DAILY 02/03/18 02/03/18 History Allergies Allergy/AdvReac Type Severity Reaction Status Date / Time azithromycin [From Zithromax] Allergy BLOOD IN Verified 02/03/18 12:31 STOOL/URINE ciprofloxacin [From Cipro] Allergy BLOOD Verified 02/03/18 12:31 URINE/STOOL ciprofloxacin HCl Allergy BLOOD Verified 02/03/18 12:31 [From Cipro] URINE/STOOL CHLORINE Allergy Wheezing Uncoded 02/03/18 11:59 Physical Exam Vitals: Vital Signs Temp Pulse Resp BP Pulse Ox 02/03/18 15:44 97.4 F L 95 18 173/84 95 02/03/18 14:30 96 19 168/82 95 02/03/18 13:51 87 18 169/84 97 02/03/18 13:12 80 02/03/18 13:00 82 02/03/18 12:50 18 02/03/18 12:48 83 18 169/96 96 02/03/18 11:59 98.1 F 90 18 166/95 97 Intake and Output 02/03/18 02/03/18 02/03/18 06:59 14:59 22:59 Output Total 750 Balance -750 Output: Other 750 Other: Weight 81.647 kg Physical Exam: Revealed a 73-year-old female, obese, in no distress. Head: Atraumatic, normocephalic. HEENT:[Neck is supple.] [No neck masses.] [No thyromegaly.] [No JVD.] Chest: [Diminished breath sounds and dullness at the right base, left side is clear, no rhonchi, no wheezes, no chest wall tenderness.] Cardiac Exam: [Normal S1 and S2, no S3 gallop, no murmur.] Abdomen: [Obese, Soft, nontender, no megaly, no rebound, no guarding, normal bowel sounds.] Extremities: [No clubbing, no edema, no cyanosis.] Neurological Exam: [No focal neurologic deficit.] Skin: No rashes, no areas of erythema. Lymphatics: No lymphadenopathy Psychiatric: Normal mood affect and mental status examination. Results - Laboratory Findings CBC and BMP: 02/03/18 12:33 02/03/18 12:33 PT/INR, D-dimer PT 10.2 sec (9.0-12.0) 02/03/18 12:33 INR 1.0 (<1.2) 02/03/18 12:33 Abnormal lab findings: Abnormal Labs 02/03/18 02/03/18 12:33 12:33 APTT 20.9 L Glucose 103 H AST 38 H - Diagnostic Findings Chest x-ray: image reviewed CT scan - chest: image reviewed (Good sized right-sided pleural effusion has been present since her first evaluation in the ER on 12/27/2017, was not present on a chest x-ray in 2014.) Assessment and Plan Assessment: Impression: 1 subacute right-sided pleural effusion, most likely parapneumonic in nature, although the differential diagnoses includes malignancy. 2 suspect recent history of pneumonia, clinically resolved but the patient continued to have residual right-sided pleural effusion/parapneumonic. 3 history of hypertension, osteoarthritis, and history of multiple ALLERGIES to different antibiotics including ciprofloxacin and Zithromax. Recommendation: Right-sided thoracentesis was done, fluid was sent for different diagnostic studies, patient was cleared for discharge home, I discussed her condition with the ER physician Dr. Darren Gupta, and advised the patient to come back and see me in my office next week. On her next visit she will have a follow-up chest x-ray and hopefully by then we have the results of the pleural effusion including the cytology and the cultures as well as LDH protein and glucose. Patient was also advised to call my office if she develops any worsening pulmonary symptoms or come back to the ER if she gets any worse at any point in time. Time with Patient: Greater than 30
--- NOTE | 2018-02-03 16:03 | ED ---
Medical Decision Making - Lab Data Result diagrams: 02/03/18 12:33 02/03/18 12:33 Lab Results 02/03/18 02/03/18 02/03/18 Range/Units 12:33 12:33 12:33 WBC 6.6 (3.8-10.6) k/uL RBC 5.18 (3.80-5.40) m/uL Hgb 15.1 (11.4-16.0) gm/dL Hct 45.1 (34.0-46.0) % MCV 87.1 (80.0-100.0) fL MCH 29.1 (25.0-35.0) pg MCHC 33.4 (31.0-37.0) g/dL RDW 13.0 (11.5-15.5) % Plt Count 313 (150-450) k/uL Neutrophils % 58 % Lymphocytes % 30 % Monocytes % 8 % Eosinophils % 2 % Basophils % 0 % Neutrophils # 3.8 (1.3-7.7) k/uL Lymphocytes # 1.9 (1.0-4.8) k/uL Monocytes # 0.5 (0-1.0) k/uL Eosinophils # 0.1 (0-0.7) k/uL Basophils # 0.0 (0-0.2) k/uL PT (9.0-12.0) sec INR (<1.2) APTT (22.0-30.0) sec Sodium 140 (137-145) mmol/L Potassium 3.7 (3.5-5.1) mmol/L Chloride 105 (98-107) mmol/L Carbon Dioxide 25 (22-30) mmol/L Anion Gap 10 mmol/L BUN 12 (7-17) mg/dL Creatinine 0.70 (0.52-1.04) mg/dL Est GFR (CKD-EPI)AfAm >90 (>60 ml/min/1.73 sqM) Est GFR (CKD-EPI)NonAf 86 (>60 ml/min/1.73 sqM) Glucose 103 H (74-99) mg/dL Plasma Lactic Acid Gonzales (0.7-2.0) mmol/L Calcium 10.0 (8.4-10.2) mg/dL Magnesium 2.2 (1.6-2.3) mg/dL Total Bilirubin 1.0 (0.2-1.3) mg/dL AST 38 H (14-36) U/L ALT 46 (9-52) U/L Alkaline Phosphatase 97 (38-126) U/L Total Creatine Kinase 75 (30-135) U/L CK-MB (CK-2) 1.2 (0.0-2.4) ng/mL CK-MB (CK-2) Rel Index 1.6 Troponin I <0.012 (0.000-0.034) ng/mL NT-Pro-B Natriuret Pep pg/mL Total Protein 7.5 (6.3-8.2) g/dL Albumin 4.3 (3.5-5.0) g/dL 02/03/18 02/03/18 02/03/18 Range/Units 12:33 12:33 12:33 WBC (3.8-10.6) k/uL RBC (3.80-5.40) m/uL Hgb (11.4-16.0) gm/dL Hct (34.0-46.0) % MCV (80.0-100.0) fL MCH (25.0-35.0) pg MCHC (31.0-37.0) g/dL RDW (11.5-15.5) % Plt Count (150-450) k/uL Neutrophils % % Lymphocytes % % Monocytes % % Eosinophils % % Basophils % % Neutrophils # (1.3-7.7) k/uL Lymphocytes # (1.0-4.8) k/uL Monocytes # (0-1.0) k/uL Eosinophils # (0-0.7) k/uL Basophils # (0-0.2) k/uL PT 10.2 (9.0-12.0) sec INR 1.0 (<1.2) APTT 20.9 L (22.0-30.0) sec Sodium (137-145) mmol/L Potassium (3.5-5.1) mmol/L Chloride (98-107) mmol/L Carbon Dioxide (22-30) mmol/L Anion Gap mmol/L BUN (7-17) mg/dL Creatinine (0.52-1.04) mg/dL Est GFR (CKD-EPI)AfAm (>60 ml/min/1.73 sqM) Est GFR (CKD-EPI)NonAf (>60 ml/min/1.73 sqM) Glucose (74-99) mg/dL Plasma Lactic Acid Gonzales 1.2 (0.7-2.0) mmol/L Calcium (8.4-10.2) mg/dL Magnesium (1.6-2.3) mg/dL Total Bilirubin (0.2-1.3) mg/dL AST (14-36) U/L ALT (9-52) U/L Alkaline Phosphatase (38-126) U/L Total Creatine Kinase (30-135) U/L CK-MB (CK-2) (0.0-2.4) ng/mL CK-MB (CK-2) Rel Index Troponin I (0.000-0.034) ng/mL NT-Pro-B Natriuret Pep 79 pg/mL Total Protein (6.3-8.2) g/dL Albumin (3.5-5.0) g/dL Disposition Clinical Impression: Parapneumonic effusion, S/P thoracentesis, Dyspnea Disposition: HOME SELF-CARE Condition: Good Instructions: Pleural Effusion (ED) Additional Instructions: [id number]-[id number] Motrin and Tylenol for pain, follow-up with Dr. Liang as discussed Motrin can be used [id number]-[id number]-[id number] 600 mg or 3 tablets every 6 hours when necessary pain Is patient prescribed a controlled substance at d/c from ED?: No Referrals: Magdaleno Liang MD [STAFF PHYSICIAN] - 1-2 days Nahed Ledezma MD [Primary Care Provider] - 1-2 days
[2018-02-03 16:27] VITALS: BP 153/88; PULSE 96; TEMP 97.1
[2018-02-03 16:36] LABS: Appearance,BF Cloudy; Color,BF Yellow; Nucleated Cells, Body Fluid 775 /uL; RBC, Body Fluid 6275 /uL
[2018-02-03 16:41] LABS: Mononuclear WBC,Body Fluid 65 %; Polynuclear WBC,Body Fluid 35 %; Total Cells Counted,Body Fluid 100
--- NOTE | 2018-02-04 07:22 | PCN ---
PROCEDURE NOTE The operative report is right-sided thoracentesis. PREOPERATIVE DIAGNOSIS: Right pleural effusion. POSTOPERATIVE DIAGNOSIS: Right pleural effusion. ANESTHESIA USED: 4 mL of 1% lidocaine. PROCEDURE: The patient was placed in a sitting upright position. She was leaning over a table at the bedside, and the area below the right scapula was prepared in a sterile fashion and drapes were applied. The area was earlier localized by ultrasound guidance, and it was locally anesthetized with lidocaine correlated to the level of the 8th intercostal space and tip of the scapula. A 26-gauge needle was inserted at the same site, advanced into the area to the pleural space, but could not reach the pleural space because of the thickness of the subcutaneous tissue and the skin. I then went and proceeded directly to the large thoracentesis catheter and needle. A small tiny incision was made, and through that incision at the 8th intercostal space and tip of the scapula, the needle and the catheter were both inserted at the same site, advanced into the pleural space and as soon as the pleural space was entered, the needle was pulled out of the pleural space, and the catheter was advanced further down into the pleural space. Free-flowing fluid was removed, roughly 750 mL of dark yellow fluid removed, slightly serosanguineous. The fluid was free flowing and roughly 750 mL were drained. It was sent for different diagnostic studies. Procedure was well tolerated and there was no evidence of any immediate complications. MMODL / IJN: [id number] /
== END 2018-02-03 16:25 | disposition home or self-care (01) ==
LOC: EC 11:44
DX: J90 Pleural effusion, not elsewhere classified (principal); I10 Essential (primary) hypertension; Z87.891 Personal history of nicotine dependence; Z79.899 Other long term (current) drug therapy; Z88.1 Allergy status to other antibiotic agents; Z88.8 Allergy status to other drugs, medicaments and biological substances
CPT/HCPCS: 32555; 36415; 71045; 76604; 80053; 82150; 82550; 82553; 82945; 83605; 83615; 83735; 83880; 84157; 84484; 85025; 85610; 85730; 87040; 87070; 87102; 87116; 87205; 87206; 88108; 88305; 88341; 88342; 89050; 93005; 94640; 99285

== ENCOUNTER 2018-02-08 17:40 | Emergency (ER) | payer MEDICARE ==
[2018-02-08] MEDS ORDERED: SODIUM CHLORIDE 0.9% 1,000 ML IV STA ×2 (18:11)
[2018-02-08] MEDS ORDERED: IPRATROPIUM-ALBUTEROL 3 ML NEB INHALATION STA (18:11)
[2018-02-08] MEDS ORDERED: cefTRIAXone IN SWFI 1,000 MG/10 ML SYRINGE IVP STA (18:11)
--- NOTE | 2018-02-08 18:48 | ED ---
SOB HPI - General Chief Complaint: Shortness of Breath Stated Complaint: SOB Time Seen by Provider: 02/08/18 17:49 Source: patient, RN notes reviewed, old records reviewed Mode of arrival: wheelchair Limitations: no limitations - History of Present Illness Initial Comments: Is a 73-year-old female presents emergency department with increased shortness of breath. Patient reports she had thoracentesis completed on 02/03/2018. Patient states that since that time she's had increased shortness of breath. She did today she arrives with a fever. Patient states that she has had a worsening productive cough. Patient states that she has been having the symptoms for the past 2 months. Patient states that she has a follow-up appointment on Friday with Dr. Mendez. - Related Data Home Medications Medication Instructions Recorded Confirmed Triamterene-Hctz 37.5-25Mg 1 tab PO DAILY 06/02/15 02/03/18 [Maxzide 37.5-25] guaiFENesin [Mucinex] 600 mg PO Q12H PRN 12/30/17 02/03/18 Biotin 5 mg PO DAILY 01/23/18 02/03/18 Cyanocobalamin (Vitamin B-12) 1,000 mcg PO DAILY 01/23/18 02/03/18 [Vitamin B-12] Methylsulfonylmethane [MSM] 1,000 mg PO DAILY 01/23/18 02/03/18 Multivitamins, Thera [Multivitamin 1 tab PO DAILY 01/23/18 02/03/18 (formulary)] Vitamin B Complex 1 cap PO DAILY 01/23/18 02/03/18 Vitamin E (Dl,Tocopheryl Acet) 400 unit PO DAILY 01/23/18 02/03/18 [Vitamin E] Acetaminophen Tab [Tylenol Tab] 325 mg PO Q4H PRN 02/03/18 02/03/18 Cholecalciferol [Vitamin D3] 1,000 unit PO DAILY 02/03/18 02/03/18 Previous Rx's Medication Instructions Recorded Albuterol Inhaler [Ventolin Hfa 1 - 2 puff INHALATION RT-Q6H PRN 02/08/18 Inhaler] #1 inhaler Levofloxacin [Levaquin] 750 mg PO DAILY #5 tab 02/08/18 Allergies Allergy/AdvReac Type Severity Reaction Status Date / Time azithromycin [From Zithromax] Allergy BLOOD IN Verified 02/08/18 17:45 STOOL/URINE ciprofloxacin [From Cipro] Allergy BLOOD Verified 02/08/18 17:45 URINE/STOOL ciprofloxacin HCl Allergy BLOOD Verified 02/08/18 17:45 [From Cipro] URINE/STOOL CHLORINE Allergy Wheezing Uncoded 02/08/18 17:45 Review of Systems ROS Statement: Those systems with pertinent positive or pertinent negative responses have been documented in the HPI. ROS Other: All systems not noted in ROS Statement are negative. Past Medical History Past Medical History: Hypertension, Osteoarthritis (OA), Pneumonia Additional Past Medical History / Comment(s): CURRENT FX OF LEFT HUMERUS D/T FALL, SHOULDER IMMOBILIZED CURRENTLY History of Any Multi-Drug Resistant Organisms: None Reported Past Surgical History: Orthopedic Surgery Additional Past Surgical History / Comment(s): SX FX RT WRIST, LT IM HUMURUS NAILING Past Anesthesia/Blood Transfusion Reactions: No Reported Reaction Past Psychological History: No Psychological Hx Reported Smoking Status: Former smoker Past Alcohol Use History: Occasional Past Drug Use History: None Reported - Past Family History Father Family Medical History: Cancer, Dementia Additional Family Medical History / Comment(s): COLON Cncer, mrsa Mother Family Medical History: Asthma, Myocardial Infarction ([place]) Additional Family Medical History / Comment(s): age 33 General Exam - General Exam Comments Initial Comments: This is a 73-year-old -[place]anish female. Limitations: no limitations General appearance: alert, in no apparent distress Head exam: Present: atraumatic, normocephalic, normal inspection Eye exam: Present: normal appearance, PERRL, EOMI. Absent: scleral icterus, conjunctival injection, periorbital swelling ENT exam: Present: normal exam, mucous membranes moist Neck exam: Present: normal inspection. Absent: tenderness, meningismus, lymphadenopathy Respiratory exam: Present: decreased breath sounds (Right lungs decreased breath sounds.). Absent: normal lung sounds bilaterally, respiratory distress, wheezes, rales, rhonchi, stridor Cardiovascular Exam: Present: regular rate, normal rhythm, normal heart sounds. Absent: systolic murmur, diastolic murmur, rubs, gallop, clicks GI/Abdominal exam: Present: soft, normal bowel sounds. Absent: distended, tenderness, guarding, rebound, rigid Extremities exam: Present: normal inspection, full ROM, normal capillary refill. Absent: tenderness, pedal edema, joint swelling, calf tenderness Back exam: Present: normal inspection Neurological exam: Present: alert, oriented X3, CN II-XII intact Psychiatric exam: Present: normal affect, normal mood Skin exam: Present: warm, dry, intact, normal color. Absent: rash Course Vital Signs 02/08/18 02/08/18 02/08/18 17:42 19:20 19:27 Temperature 100.4 F H Pulse Rate 111 H 100 102 H Respiratory 20 Rate Blood Pressure 160/71 O2 Sat by Pulse 96 Oximetry 02/08/18 02/08/18 20:13 20:51 Temperature 98.7 F Pulse Rate 98 Respiratory 18 Rate Blood Pressure 145/78 O2 Sat by Pulse 96 94 L Oximetry Medical Decision Making - Medical Decision Making 73-year-old female presents emergency department today with chief complaint of shortness of breath, worsening over the past few days. Patient recently had thoracentesis. She also complains of increased cough today. Patient does have diminished lung sounds over the right lower lung base. Some minor wheezing noted. Given a DuoNeb treatment. Patient labwork was obtained and relatively unremarkable. Chest x-ray shows evidence of that was seems to be developing pneumonia as well as the continued right pleural effusion. 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 Patient does have a follow-up appointment in [address] Mendez. Patient case discussed with on-call physician Dr. Zarate. He came down and evaluated the Patient. He recommends a discharge patient with stable vitals and labs. Patient for outpatient treatment with Levaquin, Motrin and Tylenol for pain. Discussed that patient can return if any worsening shortness of breath. Patient is agreeable with discharge. - Lab Data Result diagrams: 02/08/18 18:31 02/08/18 18:31 Lab Results 02/08/18 02/08/18 02/08/18 Range/Units 18:31 18:31 18:31 WBC 7.8 (3.8-10.6) k/uL RBC 5.00 (3.80-5.40) m/uL Hgb 14.5 (11.4-16.0) gm/dL Hct 42.9 (34.0-46.0) % MCV 85.9 (80.0-100.0) fL MCH 28.9 (25.0-35.0) pg MCHC 33.7 (31.0-37.0) g/dL RDW 12.9 (11.5-15.5) % Plt Count 399 (150-450) k/uL Neutrophils % 62 % Lymphocytes % 25 % Monocytes % 7 % Eosinophils % 2 % Basophils % 0 % Neutrophils # 4.8 (1.3-7.7) k/uL Lymphocytes # 2.0 (1.0-4.8) k/uL Monocytes # 0.6 (0-1.0) k/uL Eosinophils # 0.1 (0-0.7) k/uL Basophils # 0.0 (0-0.2) k/uL PT (9.0-12.0) sec INR (<1.2) APTT (22.0-30.0) sec Sodium 138 (137-145) mmol/L Potassium 3.6 (3.5-5.1) mmol/L Chloride 104 (98-107) mmol/L Carbon Dioxide 23 (22-30) mmol/L Anion Gap 11 mmol/L BUN 13 (7-17) mg/dL Creatinine 0.60 (0.52-1.04) mg/dL Est GFR (CKD-EPI)AfAm >90 (>60 ml/min/1.73 sqM) Est GFR (CKD-EPI)NonAf >90 (>60 ml/min/1.73 sqM) Glucose 101 H (74-99) mg/dL Plasma Lactic Acid Gonzales (0.7-2.0) mmol/L Calcium 10.1 (8.4-10.2) mg/dL Magnesium 2.0 (1.6-2.3) mg/dL Total Bilirubin 0.7 (0.2-1.3) mg/dL AST 31 (14-36) U/L ALT 33 (9-52) U/L Alkaline Phosphatase 98 (38-126) U/L Total Creatine Kinase 96 (30-135) U/L CK-MB (CK-2) 1.0 (0.0-2.4) ng/mL CK-MB (CK-2) Rel Index 1.0 Troponin I <0.012 (0.000-0.034) ng/mL NT-Pro-B Natriuret Pep pg/mL Total Protein 7.2 (6.3-8.2) g/dL Albumin 4.0 (3.5-5.0) g/dL 02/08/18 02/08/18 02/08/18 Range/Units 18:31 18:31 18:31 WBC (3.8-10.6) k/uL RBC (3.80-5.40) m/uL Hgb (11.4-16.0) gm/dL Hct (34.0-46.0) % MCV (80.0-100.0) fL MCH (25.0-35.0) pg MCHC (31.0-37.0) g/dL RDW (11.5-15.5) % Plt Count (150-450) k/uL Neutrophils % % Lymphocytes % % Monocytes % % Eosinophils % % Basophils % % Neutrophils # (1.3-7.7) k/uL Lymphocytes # (1.0-4.8) k/uL Monocytes # (0-1.0) k/uL Eosinophils # (0-0.7) k/uL Basophils # (0-0.2) k/uL PT 9.9 (9.0-12.0) sec INR 1.0 (<1.2) APTT 24.3 (22.0-30.0) sec Sodium (137-145) mmol/L Potassium (3.5-5.1) mmol/L Chloride (98-107) mmol/L Carbon Dioxide (22-30) mmol/L Anion Gap mmol/L BUN (7-17) mg/dL Creatinine (0.52-1.04) mg/dL Est GFR (CKD-EPI)AfAm (>60 ml/min/1.73 sqM) Est GFR (CKD-EPI)NonAf (>60 ml/min/1.73 sqM) Glucose (74-99) mg/dL Plasma Lactic Acid Gonzales 1.1 (0.7-2.0) mmol/L Calcium (8.4-10.2) mg/dL Magnesium (1.6-2.3) mg/dL Total Bilirubin (0.2-1.3) mg/dL AST (14-36) U/L ALT (9-52) U/L Alkaline Phosphatase (38-126) U/L Total Creatine Kinase (30-135) U/L CK-MB (CK-2) (0.0-2.4) ng/mL CK-MB (CK-2) Rel Index Troponin I (0.000-0.034) ng/mL NT-Pro-B Natriuret Pep 70 pg/mL Total Protein (6.3-8.2) g/dL Albumin (3.5-5.0) g/dL 02/08/18 19:38 EKG shows sinus tachycardia, possible left atrial margin. Septal infarct age determined. Ventricular rate of 106 bpm. Intervals 172 ms. QRS duration 84 ms. QT QTc is 360/480 ms. - Radiology Data Radiology results: report reviewed Similar-appearing right basilar airspace disease and small right pleural effusion with linear rectal stroke cardiac airspace disease in comparison to the prior 02/03/2018. Basilar airspace disease could represent pneumonia in the proper clinical setting, possible aspiration pneumonia given distribution or bibasilar atelectasis. Disposition Clinical Impression: Dyspnea, Pneumonia, Parapneumonic effusion Disposition: HOME SELF-CARE Condition: Good Instructions: Pleural Effusion (ED), Bacterial Pneumonia (ED) Additional Instructions: Patient has close follow-up with primary care physician in follow-up with Dr. Mendez on Friday.. Return to emergency department if any alarming signs or symptoms occur. Patient should take the new antibiotic as prescribed. Prescriptions: Albuterol Inhaler [Ventolin Hfa Inhaler] 1 - 2 puff INHALATION RT-Q6H PRN #1 inhaler PRN Reason: Shortness Of Breath Levofloxacin [Levaquin] 750 mg PO DAILY #5 tab Is patient prescribed a controlled substance at d/c from ED?: No Referrals: Nahed Ledezma MD [Primary Care Provider] - 1-2 days Time of Disposition: 21:02
[2018-02-08 18:51] LABS: Basophils % (A) 0 %; Eosinophils # (A) 0.1 k/uL (0-0.7); Eosinophils % (A) 2 %; HCT 42.9 % (34.0-46.0); HGB 14.5 gm/dL (11.4-16.0); Lymphocytes % (A) 25 %; MCH 28.9 pg (25.0-35.0); MCHC 33.7 g/dL (31.0-37.0); MCV 85.9 fL (80.0-100.0); Mean Platelet Volume 6.6; Monocytes # (A) 0.6 k/uL (0-1.0); Monocytes % (A) 7 %; Neutrophils # (A) 4.8 k/uL (1.3-7.7); Neutrophils % (A) 62 %; Platelet Count 399 k/uL (150-450); RDW 12.9 % (11.5-15.5); WBC 7.8 k/uL (3.8-10.6)
[2018-02-08 18:55] LABS: ALT 33 U/L (9-52); AST 31 U/L (14-36); Alkaline Phosphatase 98 U/L (38-126); Anion Gap 11 mmol/L; Blood Urea Nitrogen 13 mg/dL (7-17); Calcium 10.1 mg/dL (8.4-10.2); Carbon Dioxide 23 mmol/L (22-30); Chloride 104 mmol/L (98-107); Glucose 101 mg/dL (74-99); Potassium 3.6 mmol/L (3.5-5.1); Sodium 138 mmol/L (137-145); Total Bilirubin 0.7 mg/dL (0.2-1.3); Total Protein 7.2 g/dL (6.3-8.2)
[2018-02-08 18:57] LABS: Creatine Kinase 96 U/L (30-135)
--- NOTE | 2018-02-08 18:59 | XR ---
EXAMINATION TYPE: XR chest 2V DATE OF EXAM: 02/08/2018 COMPARISON: 02/03/2018 HISTORY: Increasing shortness of breath TECHNIQUE: Frontal and lateral views of the chest are obtained. FINDINGS: There is right basilar airspace disease that appears overall similar in volume to the prio r of 02/03/2018 with a layering pleural effusion and meniscus sign and interfissural fluid and associat ed right basilar consolidation. Strand-like retrocardiac opacity is also seen. No pulmonary vascular congestion is noted. No sizable pneumothorax. Cardia mediastinal silhouette is partially obscured but appears similar to the prior. Partial visualization of a left humeral surgical fixation is noted. Mi ld multilevel degenerative change of the thoracic spine is seen. IMPRESSION: Similar-appearing right basilar airspace disease and small pleural effusion with linear retrocardiac airspace disease in comparison to the prior of 02/03/2013. Bibasilar airspace disease coul d represent pneumonia in the proper clinical setting, possible aspiration pneumonia given the distrib ution, or bibasilar atelectasis.
[2018-02-08 19:09] LABS: Troponin I <0.012 ng/mL (0.000-0.034)
[2018-02-08 19:15] LABS: Partial Thromboplastin Time 24.3 sec (22.0-30.0); Prothrombin Time 9.9 sec (9.0-12.0)
[2018-02-08] MEDS ORDERED: CEFEPIME 1 GM in SODIUM CHLORIDE 0.9% 50 ML IVPB STA (19:50)
[2018-02-08] MEDS ORDERED: SODIUM CHLORIDE 0.9% 1,000 ML IV ONE (20:01)
[2018-02-08 20:15] VITALS: RESP 18
[2018-02-08] MEDS ORDERED: PROMETHAZ-COD 6.25-10 MG/5 ML 5 ML CUP PO STA (21:19)
--- NOTE | 2018-02-08 21:20 | P.CONS ---
History of Present Illness - Reason for Consult Consult date: 02/08/18 Evaluation for admission Requesting physician: Lorna Springer - Chief Complaint Shortness of breath - History of Present Illness The patient is a 73-year-old female with a past medical history of essential hypertension that presents to the ER with chief complaint of worsening shortness of breath and cough. Patient was recently diagnosed with community-acquired pneumonia parapneumonic effusion on 12/27/17 and had a course of amoxicillin, she was also given a course of prednisone from her PCP. Apparently the patient was recently seen by Dr. Liang Recently in consultation and had a right-sided thoracentesis done on 02/03/18 secondary to right sided what was presumed parapneumonic pleural effusion. At that time the patient's pleural fluid was sent for analysis. Over the last couple days patient reports increasing shortness of breath with exertion, and has had subjective fevers and chills. She denies any chest pain but does mention right flank pain. Today in the ER she had a workup with chest x-ray that showed a right basilar airspace disease and small pleural effusion with linear retrocardiac airspace disease in comparison to prior exam on 02/03/18. The patient had normal labs no leukocytosis but was febrile with a low-grade temperature of 100.4, and was mildly tachycardic on presentation. She was given a liter of normal saline and started on empiric IV antibiotics with cefepime. Review of Systems Those systems with pertinent positive or pertinent negative responses have been documented in the HPI. ROS Other: All systems not noted in ROS Statement are negative. Past Medical History Past Medical History: Hypertension, Osteoarthritis (OA), Pneumonia Additional Past Medical History / Comment(s): CURRENT FX OF LEFT HUMERUS D/T FALL, SHOULDER IMMOBILIZED CURRENTLY History of Any Multi-Drug Resistant Organisms: None Reported Past Surgical History: Orthopedic Surgery Additional Past Surgical History / Comment(s): SX FX RT WRIST, LT IM HUMURUS NAILING Past Anesthesia/Blood Transfusion Reactions: No Reported Reaction Past Psychological History: No Psychological Hx Reported Smoking Status: Former smoker Past Alcohol Use History: Occasional Past Drug Use History: None Reported - Past Family History Father Family Medical History: Cancer, Dementia Additional Family Medical History / Comment(s): COLON Cncer, mrsa Mother Family Medical History: Asthma, Myocardial Infarction ([place]) Additional Family Medical History / Comment(s): age 33 Medications and Allergies Home Medications Medication Instructions Recorded Confirmed Type Triamterene-Hctz 37.5-25Mg 1 tab PO DAILY 06/02/15 02/03/18 History [Maxzide 37.5-25] guaiFENesin [Mucinex] 600 mg PO Q12H PRN 12/30/17 02/03/18 History Biotin 5 mg PO DAILY 01/23/18 02/03/18 History Cyanocobalamin (Vitamin B-12) 1,000 mcg PO DAILY 01/23/18 02/03/18 History [Vitamin B-12] Methylsulfonylmethane [MSM] 1,000 mg PO DAILY 01/23/18 02/03/18 History Multivitamins, Thera [Multivitamin 1 tab PO DAILY 01/23/18 02/03/18 History (formulary)] Vitamin B Complex 1 cap PO DAILY 01/23/18 02/03/18 History Vitamin E (Dl,Tocopheryl Acet) 400 unit PO DAILY 01/23/18 02/03/18 History [Vitamin E] Acetaminophen Tab [Tylenol Tab] 325 mg PO Q4H PRN 02/03/18 02/03/18 History Cholecalciferol [Vitamin D3] 1,000 unit PO DAILY 02/03/18 02/03/18 History Albuterol Inhaler [Ventolin Hfa 1 - 2 puff INHALATION RT-Q6H PRN 02/08/18 Rx Inhaler] #1 inhaler Levofloxacin [Levaquin] 750 mg PO DAILY #5 tab 02/08/18 Rx Allergies Allergy/AdvReac Type Severity Reaction Status Date / Time azithromycin [From Zithromax] Allergy BLOOD IN Verified 02/08/18 17:45 STOOL/URINE ciprofloxacin [From Cipro] Allergy BLOOD Verified 02/08/18 17:45 URINE/STOOL ciprofloxacin HCl Allergy BLOOD Verified 02/08/18 17:45 [From Cipro] URINE/STOOL CHLORINE Allergy Wheezing Uncoded 02/08/18 17:45 Physical Exam Vitals: Vital Signs Temp Pulse Resp BP Pulse Ox 02/08/18 20:13 98.7 F 98 18 145/78 96 02/08/18 19:27 102 H 02/08/18 19:20 100 02/08/18 17:42 100.4 F H 111 H 20 160/71 96 Intake and Output 02/08/18 02/08/18 02/08/18 06:59 14:59 22:59 Other: Weight 81.193 kg Constitutional: No acute distress, conversant, pleasant Eyes: Anicteric sclerae, moist conjunctiva, no lid-lag, PERRLA ENMT: NC/AT,Oropharynx clear, no erythema, exudates Neck:Supple, FROM, no masses, or JVD, No carotid bruits; No thyromegaly Lungs: Diminished in the right lower lobe bases Clear to auscultation, Clear to percussion, Normal respiratory effort, no accessory muscle use Cardiovascular: Heart regular in rate and rhythm, No murmurs, gallops, or rubs no peripheral edema Abdominal: Soft Nontender, nom distended, no guarding, no rebound or rigidity, Normoactive bowel sounds No hepatomegaly, No splenomegaly, No palpable mass No abdominal wall hernia noted Skin: Normal temperature, tone, texture, turgor, No induration No subcutaneous nodules, No rash, lesions, No ulcers Extremities:No digital cyanosis No clubbing, Pedal pulses intact and symmetrical Radial pulses intact and symmetrical Normal gait and station, No calf tenderness Psychiatric: Alert and oriented to person, place and time, Appropriate affect Intact judgement Neuro: Muscles Strength 5/5 in all 4 extremities, Sensation to light touch grossly present throughout, Cranial nerves II-XII grossly intact. No focal sensory deficits Results CBC & Chem 7: 02/08/18 18:31 02/08/18 18:31 Labs: Abnormal Lab Results - Last 24 Hours (Table) 02/08/18 Range/Units 18:31 Glucose 101 H (74-99) mg/dL Assessment and Plan (1) Pneumonia Status: Acute Code(s): J18.9 - PNEUMONIA, UNSPECIFIED ORGANISM SNOMED Code(s ): 925114711 (2) Dyspnea Status: Acute Code(s): R06.00 - DYSPNEA, UNSPECIFIED SNOMED Code(s): 906162594 (3) S/P thoracentesis Status: Acute Code(s): Z98.890 - OTHER SPECIFIED POSTPROCEDURAL STATES SNOMED Code(s): 408675935 Plan: The patient was seen and evaluated in the ER and was not toxic appearing, she was hemodynamically stable and not in respiratory distress, the patient did not appear septic, she had no leukocytosis or bandemia and a negative lactate level. She was given a loading dose of cefepime and a breathing treatment and 2 L of normal saline. 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 She was maintaining normal oxygenation on exertion and was subsequently discharged home in stable condition with a new prescription for Levaquin and Tylenol. patients CURB score is 1 based on her age. She was instructed to keep her follow-up appointment with Dr. Liang on Friday where the results of her pathology will be discussed.
[2018-02-08 21:43] VITALS: BP 140/79; PULSE 82; TEMP 98.2
== END 2018-02-08 21:35 | disposition home or self-care (01) ==
LOC: EC 17:40
DX: J18.9 Pneumonia, unspecified organism (principal); J90 Pleural effusion, not elsewhere classified; I10 Essential (primary) hypertension; Z87.891 Personal history of nicotine dependence; Z79.899 Other long term (current) drug therapy; Z88.1 Allergy status to other antibiotic agents; Z91.048 Other nonmedicinal substance allergy status
CPT/HCPCS: 36415; 94640; 93005; 83880; 80053; 82550; 82553; 83605; 83735; 84484; 85025; 85610; 85730; 87040; 71046; 99285; 96365; 96375; 96361 ×2; J0692; J0696

== ENCOUNTER → 2018-02-11 | Outpatient (CLI) | payer MEDICARE ==
--- NOTE | 2018-02-11 15:34 | XR ---
EXAMINATION TYPE: XR chest 2V DATE OF EXAM: 02/11/2018 COMPARISON: Chest x-ray from 3 days ago and older studies. Outside CTA chest February 01, 2018. HISTORY: Cough and increased shortness of breath TECHNIQUE: Frontal and lateral views of the chest are obtained. FINDINGS: There is worsening or redeveloping moderate to large size right pleural effusion with asso ciated basilar atelectasis and/or infiltrate. There is patchy left basilar atelectasis. Silhouetting right heart border remains present with ectatic thoracic aorta. The lateral view there is visualizat ion of surgical hardware in the left humerus. IMPRESSION: Worsening or developing moderate to large size right pleural effusion. Underlying mass or neoplasm is suspected, correlate with results obtained during thoracentesis February 03.
== END | disposition home or self-care (01) ==
LOC: RADXRMAIN 15:09
PROVIDERS: ATTEND Internal Medicine
DX: J90 Pleural effusion, not elsewhere classified (principal)
CPT/HCPCS: 71046

== ENCOUNTER 2018-02-12 14:40 | Emergency (ER) | payer MEDICARE ==
[2018-02-12 14:47] VITALS: TEMP 99
--- NOTE | 2018-02-12 15:08 | ED ---
General Adult HPI - General Chief complaint: Shortness of Breath Stated complaint: SOB Time Seen by Provider: 02/12/18 14:48 Source: patient, RN notes reviewed Mode of arrival: ambulatory Limitations: no limitations - History of Present Illness Initial comments: Patient is a pleasant 73-year-old female presenting to the emergency Department with cough and difficulty breathing. Patient has been experiencing symptoms intermittently for the past couple of months. Patient states she's been Hospital approximately 6 times now. Patient was also at the hospital once in [place]. Patient states she has had pneumonia several times. Patient states she is not quite certain that she actually has pneumonia and questions if this could be ALLERGIC reaction. Patient states she has seen Dr. Liang and been given a diagnosis however is not quite certain that it is correct. Patient will not state what that diagnosis was. - Related Data Home Medications Medication Instructions Recorded Confirmed Triamterene-Hctz 37.5-25Mg 1 tab PO DAILY 06/02/15 02/12/18 [Maxzide 37.5-25] guaiFENesin [Mucinex] 600 mg PO Q12H PRN 12/30/17 02/12/18 Biotin 5 mg PO DAILY 01/23/18 02/12/18 Cyanocobalamin (Vitamin B-12) 1,000 mcg PO DAILY 01/23/18 02/12/18 [Vitamin B-12] Methylsulfonylmethane [MSM] 1,000 mg PO DAILY 01/23/18 02/12/18 Multivitamins, Thera [Multivitamin 1 tab PO DAILY 01/23/18 02/12/18 (formulary)] Vitamin B Complex 1 cap PO DAILY 01/23/18 02/12/18 Vitamin E (Dl,Tocopheryl Acet) 400 unit PO DAILY 01/23/18 02/12/18 [Vitamin E] Acetaminophen Tab [Tylenol Tab] 325 mg PO Q4H PRN 02/03/18 02/12/18 Cholecalciferol [Vitamin D3] 1,000 unit PO DAILY 02/03/18 02/12/18 Previous Rx's Medication Instructions Recorded Albuterol Inhaler [Ventolin Hfa 1 - 2 puff INHALATION RT-Q6H PRN 02/08/18 Inhaler] #1 inhaler Levofloxacin [Levaquin] 750 mg PO DAILY #5 tab 02/08/18 Allergies Allergy/AdvReac Type Severity Reaction Status Date / Time azithromycin [From Zithromax] Allergy BLOOD IN Verified 02/12/18 15:03 STOOL/URINE ciprofloxacin [From Cipro] Allergy BLOOD Verified 02/12/18 15:03 URINE/STOOL ciprofloxacin HCl Allergy BLOOD Verified 02/12/18 15:03 [From Cipro] URINE/STOOL CHLORINE Allergy Wheezing Uncoded 02/08/18 17:45 Review of Systems ROS Statement: Those systems with pertinent positive or pertinent negative responses have been documented in the HPI. ROS Other: All systems not noted in ROS Statement are negative. Constitutional: Denies: fever Eyes: Denies: eye pain ENT: Denies: ear pain Respiratory: Reports: cough, dyspnea Cardiovascular: Denies: chest pain Endocrine: Denies: fatigue Gastrointestinal: Denies: abdominal pain Genitourinary: Denies: dysuria Musculoskeletal: Denies: back pain Skin: Denies: rash Neurological: Denies: weakness Past Medical History Past Medical History: Hypertension, Osteoarthritis (OA), Pneumonia Additional Past Medical History / Comment(s): CURRENT FX OF LEFT HUMERUS D/T FALL, SHOULDER IMMOBILIZED CURRENTLY History of Any Multi-Drug Resistant Organisms: None Reported Past Surgical History: Orthopedic Surgery Additional Past Surgical History / Comment(s): SX FX RT WRIST, LT IM HUMURUS NAILING Past Anesthesia/Blood Transfusion Reactions: No Reported Reaction Past Psychological History: No Psychological Hx Reported Smoking Status: Former smoker Past Alcohol Use History: Occasional Past Drug Use History: None Reported - Past Family History Father Family Medical History: Cancer, Dementia Additional Family Medical History / Comment(s): COLON Cncer, mrsa Mother Family Medical History: Asthma, Myocardial Infarction ([place]) Additional Family Medical History / Comment(s): age 33 General Exam Limitations: no limitations General appearance: alert, in no apparent distress Head exam: Present: atraumatic Eye exam: Present: normal appearance, PERRL ENT exam: Present: normal oropharynx Neck exam: Present: normal inspection Respiratory exam: Present: rhonchi, decreased breath sounds Cardiovascular Exam: Present: tachycardia GI/Abdominal exam: Present: soft. Absent: tenderness Extremities exam: Present: normal inspection. Absent: pedal edema, calf tenderness Neurological exam: Present: alert Psychiatric exam: Present: normal affect, normal mood Skin exam: Present: normal color Course Vital Signs 02/12/18 02/12/18 02/12/18 14:44 14:47 15:54 Temperature 99 F Pulse Rate 124 H Pulse Rate [ 115 H Pulse Oximetery ] Respiratory 25 H 22 20 Rate Blood Pressure 148/99 Blood Pressure 166/84 [Right Arm] O2 Sat by Pulse 100 98 Oximetry 02/12/18 02/12/18 02/12/18 15:55 16:00 16:05 Temperature Pulse Rate Pulse Rate [ 114 H 115 H 114 H Pulse Oximetery ] Respiratory 20 18 Rate Blood Pressure Blood Pressure 154/81 159/88 149/80 [Right Arm] O2 Sat by Pulse 98 97 97 Oximetry 02/12/18 02/12/18 02/12/18 16:10 16:15 16:36 Temperature Pulse Rate 98 Pulse Rate [ 120 H 112 H Pulse Oximetery ] Respiratory 20 20 18 Rate Blood Pressure 159/92 Blood Pressure 179/95 174/85 [Right Arm] O2 Sat by Pulse 97 96 Oximetry - Reevaluation(s) Reevaluation #1: 02/12/18 15:29 Case was discussed in detail with Dr. Vazquez. Patient was scheduled for thoracentesis today. He states the patient does improve with thoracentesis than she can be discharged. EKG Findings - EKG Comments: EKG Findings:: Sinus tachycardia 114. VT 180. QRS 86. QT 332. QTC 447. Left axis. LVH criteria. No acute ST change. Medical Decision Making - Medical Decision Making Patient reevaluated and significantly improved following thoracentesis. Patient updated on results including discussion regarding recent pathology report. Patient is advised of need to follow-up with Dr. Liang as well as primary care physician and [facility]. Patient is receptive to having some Tylenol with codeine at this point for cough. Patient would prefer not to begin antibiotics secondary to multiple recent antibiotics for presumed pneumonia. - Lab Data Result diagrams: 02/12/18 14:53 02/12/18 14:53 Lab Results 02/12/18 02/12/18 02/12/18 Range/Units 14:53 14:53 14:53 WBC 6.5 (3.8-10.6) k/uL RBC 4.59 (3.80-5.40) m/uL Hgb 13.3 (11.4-16.0) gm/dL Hct 39.5 (34.0-46.0) % MCV 86.1 (80.0-100.0) fL MCH 28.9 (25.0-35.0) pg MCHC 33.6 (31.0-37.0) g/dL RDW 12.8 (11.5-15.5) % Plt Count 518 H (150-450) k/uL Neutrophils % 53 % Lymphocytes % 34 % Monocytes % 8 % Eosinophils % 2 % Basophils % 0 % Neutrophils # 3.4 (1.3-7.7) k/uL Lymphocytes # 2.2 (1.0-4.8) k/uL Monocytes # 0.5 (0-1.0) k/uL Eosinophils # 0.1 (0-0.7) k/uL Basophils # 0.0 (0-0.2) k/uL PT (9.0-12.0) sec INR (<1.2) APTT (22.0-30.0) sec Sodium 140 (137-145) mmol/L Potassium 3.8 (3.5-5.1) mmol/L Chloride 105 (98-107) mmol/L Carbon Dioxide 24 (22-30) mmol/L Anion Gap 11 mmol/L BUN 7 (7-17) mg/dL Creatinine 0.58 (0.52-1.04) mg/dL Est GFR (CKD-EPI)AfAm >90 (>60 ml/min/1.73 sqM) Est GFR (CKD-EPI)NonAf >90 (>60 ml/min/1.73 sqM) Glucose 113 H (74-99) mg/dL Calcium 9.9 (8.4-10.2) mg/dL Magnesium 1.8 (1.6-2.3) mg/dL Total Bilirubin 0.8 (0.2-1.3) mg/dL AST 34 (14-36) U/L ALT 29 (9-52) U/L Alkaline Phosphatase 96 (38-126) U/L Total Creatine Kinase 83 (30-135) U/L CK-MB (CK-2) 1.0 (0.0-2.4) ng/mL CK-MB (CK-2) Rel Index 1.2 Troponin I <0.012 (0.000-0.034) ng/mL NT-Pro-B Natriuret Pep pg/mL Total Protein 7.4 (6.3-8.2) g/dL Albumin 3.9 (3.5-5.0) g/dL 02/12/18 02/12/18 Range/Units 14:53 14:53 WBC (3.8-10.6) k/uL RBC (3.80-5.40) m/uL Hgb (11.4-16.0) gm/dL Hct (34.0-46.0) % MCV (80.0-100.0) fL MCH (25.0-35.0) pg MCHC (31.0-37.0) g/dL RDW (11.5-15.5) % Plt Count (150-450) k/uL Neutrophils % % Lymphocytes % % Monocytes % % Eosinophils % % Basophils % % Neutrophils # (1.3-7.7) k/uL Lymphocytes # (1.0-4.8) k/uL Monocytes # (0-1.0) k/uL Eosinophils # (0-0.7) k/uL Basophils # (0-0.2) k/uL PT 11.0 (9.0-12.0) sec INR 1.1 (<1.2) APTT 23.3 (22.0-30.0) sec Sodium (137-145) mmol/L Potassium (3.5-5.1) mmol/L Chloride (98-107) mmol/L Carbon Dioxide (22-30) mmol/L Anion Gap mmol/L BUN (7-17) mg/dL Creatinine (0.52-1.04) mg/dL Est GFR (CKD-EPI)AfAm (>60 ml/min/1.73 sqM) Est GFR (CKD-EPI)NonAf (>60 ml/min/1.73 sqM) Glucose (74-99) mg/dL Calcium (8.4-10.2) mg/dL Magnesium (1.6-2.3) mg/dL Total Bilirubin (0.2-1.3) mg/dL AST (14-36) U/L ALT (9-52) U/L Alkaline Phosphatase (38-126) U/L Total Creatine Kinase (30-135) U/L CK-MB (CK-2) (0.0-2.4) ng/mL CK-MB (CK-2) Rel Index Troponin I (0.000-0.034) ng/mL NT-Pro-B Natriuret Pep 54 pg/mL Total Protein (6.3-8.2) g/dL Albumin (3.5-5.0) g/dL - Radiology Data Radiology results: image reviewed (Chest x-ray shows moderate to large right- sided pleural effusion) Disposition Clinical Impression: Pleural effusion Disposition: HOME SELF-CARE Condition: Stable Instructions: Pleural Effusion (ED) Additional Instructions: Please follow-up with [facility], 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 Please also follow-up again with Dr. Liang your primary care physician. Please have further evaluation on uterus and ovaries including ultrasound and [facility] evaluation. Return for cough, difficulty breathing, fevers, worsening symptoms or other concerns. Is patient prescribed a controlled substance at d/c from ED?: No Referrals: Mariia Veras MD [STAFF PHYSICIAN] - 1-2 days Real Jackson DO [Doctor of Osteopathic Medicine] - 1-2 days Magdaleno Liang MD [STAFF PHYSICIAN] - 1-2 days Time of Disposition: 17:04
[2018-02-12 15:20] LABS: Basophils % (A) 0 %; Eosinophils # (A) 0.1 k/uL (0-0.7); Eosinophils % (A) 2 %; HCT 39.5 % (34.0-46.0); HGB 13.3 gm/dL (11.4-16.0); Lymphocytes # (A) 2.2 k/uL (1.0-4.8); Lymphocytes % (A) 34 %; MCH 28.9 pg (25.0-35.0); MCHC 33.6 g/dL (31.0-37.0); MCV 86.1 fL (80.0-100.0); Mean Platelet Volume 6.5; Monocytes # (A) 0.5 k/uL (0-1.0); Monocytes % (A) 8 %; Neutrophils # (A) 3.4 k/uL (1.3-7.7); Neutrophils % (A) 53 %; Platelet Count 518 k/uL (150-450); RBC 4.59 m/uL (3.80-5.40); RDW 12.8 % (11.5-15.5); WBC 6.5 k/uL (3.8-10.6)
[2018-02-12 15:22] LABS: INR 1.1 (<1.2); Partial Thromboplastin Time 23.3 sec (22.0-30.0)
[2018-02-12 15:23] LABS: ALT 29 U/L (9-52); AST 34 U/L (14-36); Albumin 3.9 g/dL (3.5-5.0); Alkaline Phosphatase 96 U/L (38-126); Anion Gap 11 mmol/L; Blood Urea Nitrogen 7 mg/dL (7-17); Calcium 9.9 mg/dL (8.4-10.2); Carbon Dioxide 24 mmol/L (22-30); Chloride 105 mmol/L (98-107); Glucose 113 mg/dL (74-99); Magnesium 1.8 mg/dL (1.6-2.3); Sodium 140 mmol/L (137-145); Total Bilirubin 0.8 mg/dL (0.2-1.3); Total Protein 7.4 g/dL (6.3-8.2)
[2018-02-12 15:27] LABS: Potassium 3.8 mmol/L (3.5-5.1)
[2018-02-12 15:36] LABS: Creatine Kinase 83 U/L (30-135)
[2018-02-12 15:49] LABS: Troponin I <0.012 ng/mL (0.000-0.034)
--- NOTE | 2018-02-12 16:01 | XR ---
EXAMINATION TYPE: XR chest 2V DATE OF EXAM: 02/12/2018 COMPARISON: 02/11/2018 HISTORY: Shortness of breath TECHNIQUE: Frontal and lateral views of the chest are obtained. FINDINGS: Scattered senescent parenchymal changes noted. Hyperinflation compatible with COPD. Large right-sided pleural effusion. Underlying atelectasis infiltrate or mass is difficult to exclude . No significant interval change when compared to prior study. Heart size is stable. Mediastinal structures are stable and grossly unremarkable. No evidence for hilar prominence. Degenerative changes dorsal spine. IMPRESSION: 1. Stable large right-sided pleural effusion.
--- NOTE | 2018-02-12 16:33 | XR ---
EXAMINATION TYPE: XR chest 1V DATE OF EXAM: 02/12/2018 COMPARISON: Today HISTORY: Thoracentesis TECHNIQUE: Single frontal view of the chest is obtained. FINDINGS: There is a moderate right pleural effusion. There is some infiltrate at the left lung base . There is no pneumothorax. IMPRESSION: Right pleural effusion is decreased compared to the exam earlier today. No pneumothorax. There is increased infiltrate at the left lung base compared to last exam.
[2018-02-12 16:37] VITALS: RESP 18
[2018-02-12] MEDS ORDERED: Acetaminophen-Codeine 300-30mg TAB PO STA (17:06)
[2018-02-12 17:16] VITALS: BP 148/88; PULSE 96
--- NOTE | 2018-02-13 08:58 | US ---
Ultrasound-guided therapeutic thoracentesis DATE OF EXAM: 02/12/2018 CLINICAL HISTORY: Shortness of breath The procedure was discussed with the patient. The risks, complications, benefits, and alternatives we re discussed and any questions were answered. Informed consent was obtained. The patient was placed supine on the ultrasound table and prepped and draped in the usual sterile fas hion. All elements of maximal barrier and sterile technique were utilized. Under ultrasound guidance, access into the pleural space was obtained, via the thoracentesis catheter system and direct ultrasound guidance. Ap proximately 1.05 liters of serous fluid was removed. The patient was stable throughout the procedure and remained stable upon discharge from Department of Radiology. IMPRESSION: 1. Successful therapeutic thoracentesis under ultrasound guidance.
== END 2018-02-12 17:27 | disposition home or self-care (01) ==
LOC: EC 14:40
DX: J90 Pleural effusion, not elsewhere classified (principal); I10 Essential (primary) hypertension; Z87.891 Personal history of nicotine dependence; Z79.899 Other long term (current) drug therapy; Z88.1 Allergy status to other antibiotic agents; Z91.048 Other nonmedicinal substance allergy status
CPT/HCPCS: 32555; 36415; 71045; 71046; 80053; 82550; 82553; 83735; 83880; 84484; 85025; 85610; 85730; 93005; 99285

== ENCOUNTER → 2018-02-18 | Outpatient (CLI) | payer MEDICARE ==
[2018-02-18 14:23] LABS: Blood Urea Nitrogen 11 mg/dL (7-17)
--- NOTE | 2018-02-18 16:28 | CT ---
EXAMINATION TYPE: CT abdomen pelvis w con DATE OF EXAM: 02/18/2018 COMPARISON: February 01, 2018 HISTORY: Adenocarcinoma. CT DLP: 1713.8 mGycm CONTRAST: CT scan of the abdomen and pelvis is performed with Oral Contrast and with IV Contrast, patient injec chris with 100 mL of Isovue M300. FINDINGS: LUNG BASES-: Right sided pleural effusion moderate on the right measuring 4.7 cm AP dimension. Multip le pulmonary nodules identified at the left lung base. Several small pulmonary nodules seen at the ri ght lung base. There is atelectasis right lower lobe. Right infrahilar soft tissue measures approxima tely 2.8 cm in maximal dimension. There is bilateral hilar adenopathy. Suspect subcarinal adenopathy. LIVER/GB: No calcified gallstones. No space occupying hepatic lesion. Biliary tree is of normal ca liber. PANCREAS: No inflammation. No distinct mass. SPLEEN: No splenic enlargement. No lesion seen. ADRENALS: No nodule. No thickening. KIDNEYS/BLADDER: No hydronephrosis. Several Left sided nonobstructing calculi measuring up to 7 mm. 4 mm calculus nonobstructing midpole right kidney. No distinct renal mass. Urinary bladder grossly u nremarkable. BOWEL: Normal appendix. Normal bowel caliber. No inflammation. Nonspecific wall thickening of the s igmoid colon. GENITAL ORGANS: Enlarged uterus with multiple masses noted. Several calcified mass is identified as well. Suspect underlying leiomyomatous change however sarcomatous change difficult to exclude. Right periuterine fluid collection. LYMPH NODES: No greater than 1cm abdominal or pelvic lymph nodes are appreciated. AORTA: No significant abnormality. OSSEOUS STRUCTURES: No significant abnormality is seen. OTHER: No significant additional abnormality is seen. IMPRESSION: 1. Right infrahilar masslike density with the hilar and mediastinal adenopathy as well as scattered p ulmonary nodules in right-sided pleural effusion. 2. Enlarged uterus with multiple masses. Suspect leiomyomatous change. Underlying sarcoma not exclude d. 3. Wall thickening of the sigmoid colon is nonspecific. #4 nonobstructing nephrolithiasis. 5. Mild fatty liver.
== END | disposition home or self-care (01) ==
LOC: RADCTMAIN 13:46
PROVIDERS: ATTEND Internal Medicine
DX: J90 Pleural effusion, not elsewhere classified (principal); N85.2 Hypertrophy of uterus; N20.0 Calculus of kidney; K76.0 Fatty (change of) liver, not elsewhere classified; C80.1 Malignant (primary) neoplasm, unspecified; Z88.1 Allergy status to other antibiotic agents
CPT/HCPCS: 82565; 84520; 74177; 36415; Q9967